=== PATIENT | female | born 1970 | race Caucasian/White ===

== ENCOUNTER 2016-06-20 13:25 | Emergency (ER) | payer OTHER ==
[2016-06-20 13:57] VITALS: BP 155/104
[2016-06-20] MEDS ORDERED: Acetaminophen TAB* 325 MG PO ONE (15:06)
--- NOTE | 2016-06-21 17:41 | UC ---
Zack Pacheco Erika, scribed for Jackie Eduardo MD on 06/20/16 at 1510 . Back Pain HPI - HPI Summary HPI Summary: Patient is a 45-year-old female presenting to [facility] with a CC of right-sided lower back pain starting 06/17/2015. Pt reports that she took down her heavy [place] lights on 06/17/2015, and believes this may be the cause of the pain. There was no direct trauma. She denies strain at the time, but states she noticed the back pain during the night, and states it has become progressively worse since then. Pain radiates to the anterior right leg and right hip. Pain is not alleviated by Tylenol, which she most recently took at 06:00 today. Pain is partially alleviated by heat, but not ice. Hx lower back injury 18 years ago. Pt does use heavy lifting at work. 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 Denies Hx HTN. FHx diabetes, cancer, CAD. - History of Current Complaint Chief Complaint: UCBackPain Stated Complaint: BACK INJURY Hx Obtained From: Patient Hx Last Menstrual Period: 05/11/17 Onset/Duration: Gradual Onset, Lasting Days, Worse Since - 06/17 at night Timing: Constant Severity Initially: Mild Severity Currently: Moderate Pain Intensity: 5 Pain Scale Used: 0-10 Numeric Back Pain: Is Discrete @ - R lower back, Radiates To - RLE Aggravating: Movement Alleviating: Heat Associated Signs And Symptoms: Positive: Negative - Allergies/Home Medications Allergies/Adverse Reactions: Allergies Allergy/AdvReac Type Severity Reaction Status Date / Time Dihydroergotamine Allergy Severe Palpitation Verified 02/14/16 10:20 [From Migranol] s Erythromycin Allergy Severe Hives Verified 02/14/16 10:20 Gabapentin [From Neurontin] Allergy Severe Swelling Verified 02/14/16 10:20 Of Face,Lips,& Throat Ibuprofen Allergy Severe Bleeding Verified 02/14/16 10:20 Naproxen [From Aleve] Allergy Severe Altered Verified 02/14/16 10:20 Mental Status Sumatriptan [From Imitrex] Allergy Severe Palpitation Verified 02/14/16 10:20 s SHINGLES VACCINE Allergy Severe Swelling Uncoded 10/08/15 22:30 Home Medications: Home Medications Acetaminophen [Tylenol] 06/20/16 [History] PMH/Surg Hx/FS Hx/Imm Hx Endocrine History Of: Denies: Diabetes, Thyroid Disease Cardiovascular History Of: Denies: Cardiac Disorders, Hypertension Respiratory History Of: Denies: COPD, Asthma GI/ History Of: Denies: Gastroesophageal Reflux, Ulcer - Surgical History Surgical History: Yes Surgery Procedure, Year, and Place: T&A. APPY. [facility]OTT. cesearean. D&C's x2. tubal ligation - Family History Known Family History: Positive: Cardiac Disease, Diabetes, Other - cancer - Social History Alcohol Use: None Substance Use Type: None Smoking Status (MU): Current Every Day Smoker Type: Cigarettes Amount Used/How Often: 1 - 1 1/2 ppd Length of Time of Smoking/Using Tobacco: ~ 25 years Have You Smoked in the Last Year: Yes Household Exposure Type: Cigarettes - Immunization History Most Recent Tetanus Shot: 2011 Review of Systems Constitutional: Negative Musculoskeletal: Myalgia - R sided lower back pain, RLE pain, right hip pain All Other Systems Reviewed And Are Negative: Yes Physical Exam Triage Information Reviewed: Yes Appearance: Well-Appearing, Well-Nourished, Pain Distress - Mild, Other: - Elevated blood pressure noted Vital Signs: Initial Vital Signs Temp 97.3 F 06/20/16 13:49 Pulse 84 06/20/16 13:49 Resp 18 06/20/16 13:49 BP 155/104 06/20/16 13:49 Pulse Ox 98 06/20/16 13:49 Vital Signs Reviewed: Yes Eyes: Positive: Conjunctiva Clear ENT: Positive: Normal ENT inspection Neck: Positive: Supple Respiratory: Positive: No respiratory distress Cardiovascular: Positive: RRR, Pulses Normal, Brisk Capillary Refill Abdomen Description: Positive: Nontender Musculoskeletal: Positive: Strength Intact, ROM Intact, Other: - Tender in the lumbar paraspinus, palpable spasms in that area, sciatic notch tenderness Neurological: Positive: Alert, Muscle Tone Normal Psychological Exam: Normal Skin Exam: Normal Back Pain Course/Dx - Course Course Of Treatment: Dr. Eduardo offered a work note and pt declined at this time. Discussed elevated blood pressure with patient and discussed the need for follow up. Pt states she does not have a diagnosis of HTN - Differential Dx/Diagnosis Provider Diagnoses: 1. Low back strain. 2. Elevated blood pressure without diagnosis of HTN Discharge - Discharge Plan Condition: Stable Disposition: HOME Prescriptions: Cyclobenzaprine TAB* [Flexeril TAB*] 10 mg PO TID PRN #30 tab PRN Reason: Pain HYDROcodone/ACETAMIN 5-325 MG* [[place] 5-325 TAB*] 1 tab PO Q4H PRN #12 tab MDD 4 PRN Reason: Pain Patient Education Materials: Low Back Strain (ED) Referrals: Rylee Payne [employer] ARCHITECT [Primary Care Provider] - The documentation as recorded by the Zack rubio Erika accurately reflects the service I personally performed and the decisions made by , Jackie Eduardo MD.
== END 2016-06-20 15:27 | disposition home or self-care (01) ==
LOC: UCEAST 13:25
DX: S39.012A Strain of muscle, fascia and tendon of lower back, initial encounter (principal); X58.XXXA Exposure to other specified factors, initial encounter; Y93.9 Activity, unspecified; Y92.9 Unspecified place or not applicable; R03.0 Elevated blood-pressure reading, without diagnosis of hypertension; Z88.6 Allergy status to analgesic agent; Z88.1 Allergy status to other antibiotic agents; Z88.8 Allergy status to other drugs, medicaments and biological substances; F17.210 Nicotine dependence, cigarettes, uncomplicated
CPT/HCPCS: 99212; A9270-GY; G0463

== ENCOUNTER 2017-06-19 23:47 | Inpatient (IN) | payer SELFPAY ==
[2017-06-20] MEDS ORDERED: VERAPAMIL 2.5 MG/ML 4 ML VIAL ONE
[2017-06-20] MEDS ORDERED: Heparin(*) 1000 UNIT/ML 10 ML VIAL CATH LAB IV ONE
[2017-06-20] MEDS ORDERED: Lidocaine 1% INJ* 10 MG/ML 30 ML SDV ONE (00:01)
[2017-06-20] MEDS ORDERED: Iohexol 350 (CONTRAST) 200 ML MDV IV ONE (00:01)
[2017-06-20] MEDS ORDERED: Midazolam* 1 MG/ML 10 ML VIAL (10 MG) ONE (00:01)
[2017-06-20] MEDS ORDERED: Heparin 2 UNITS/ML IVPREMIX* 2,000 ML IV ONE (00:01)
[2017-06-20] MEDS ORDERED: nitroGLYCERIN DRIP* 25,000 MCG/250 ML BTL ONE (00:01)
[2017-06-20] MEDS ORDERED: Morphine INJ* 4 MG/ML 1 ML CARPUJECT ONE (00:02)
[2017-06-20 00:23] LABS: ABS Basophils 0.1 10^3/ul (0-0.2); ABS Eosinophils 0.2 10^3/ul (0-0.6); ABS Lymphocytes 3.9 10^3/ul (1.0-4.8); ABS Monocytes 0.9 10^3/ul (0-0.8); ABS Neutrophils 6.4 10^3/ul (1.5-7.7); ABS Nucleated RBC 0 10^3/ul; Hematocrit 44 % (35-47); Hemoglobin 15.3 g/dl (12.0-16.0); Lymphocyte % 34.2 % (25-47); Mean Corpuscular HGB Conc 35 g/dl (31-36); Mean Corpuscular Hemoglobin 32 pg (27-31); Mean Corpuscular Volume 92 fL (80-97); Mean Platelet Volume 9 um3 (7.4-10.4); Nucleated Red Blood Cells % 0.1; Platelet Count 243 10^3/ul (150-450); Red Blood Count 4.78 10^6/ul (4.0-5.4); Red Cell Distribution Width 13 % (10.5-15); White Blood Count 11.5 10^3/ul (3.5-10.8)
[2017-06-20 00:30] LABS: INR 0.92 (0.77-1.02)
[2017-06-20 00:36] LABS: EGFR Non-African American 82.3 (>60)
[2017-06-20] MEDS ORDERED: Morphine INJ* 4 MG/ML 1 ML CARPUJECT IV ONE (00:42)
[2017-06-20] MEDS ORDERED: Morphine INJ* 2 MG/ML 1 ML SYRINGE (TWO MG - NEW SYRINGE VERSION) IV ONE ×2 (00:43→00:45)
[2017-06-20] MEDS ORDERED: Heparin for STEMI(*) 5,000 UNITS/ML 1 ML VIAL IV ONE (00:46)
[2017-06-20] MEDS ORDERED: Ondansetron INJ* 2 MG/ML VIAL IV ONE (00:46)
[2017-06-20] MEDS ORDERED: Ticagrelor* 90 MG TAB PO ONE (00:47)
[2017-06-20] MEDS ORDERED: fentaNYL* 50 MCG/ML 2 ML VIAL (100 MCG VIAL) ONE ×2 (00:51)
[2017-06-20] MEDS ORDERED: NS 0.9% 1000 ML* 1,000 ML IV SCH ×2 (01:00→01:45)
[2017-06-20] MEDS ORDERED: Ondansetron INJ* 2 MG/ML VIAL IV PRN (01:36)
[2017-06-20] MEDS ORDERED: Acetaminophen TAB* 325 MG PO PRN (01:36)
[2017-06-20] MEDS ORDERED: Nitroglycerin TAB 0.4 MG* 0.4 MG TAB SL PRN (01:36)
[2017-06-20] MEDS: Metoprolol Tartrate TAB* 25 MG PO SCH ×2 (03:10→10:14)
[2017-06-20] MEDS ORDERED: Al Hydrox/Mg Hydrox/Simet LIQ* 30 ML UDC PO PRN (03:11)
[2017-06-20] MEDS: Nicotine Inhaler* 10 MG AMP INH PRN ×2 (06:32→10:22)
[2017-06-20] MEDS: Mouth Piece, Nicotine* 1 EACH CARTRIDGE INH PRN ×2 (06:32→10:23)
--- NOTE | 2017-06-20 08:02 | RAD ---
Indication: Chest pain. Single frontal view of the chest performed at 0015 hours was reviewed. Comparison is made with previous exam dated July 22, 2015. No mediastinal shift is noted. Heart is of normal size and configuration. Lung wayne appear clear. IMPRESSION: NO ACTIVE CARDIOPULMONARY DISEASE IS NOTED.
[2017-06-20] MEDS: Ticagrelor* 90 MG TAB PO SCH ×2 (08:31→20:04)
[2017-06-20] MEDS: Aspirin Low Dose CHEW TAB* 81 MG PO SCH (08:31)
[2017-06-20] MEDS: Omeprazole CAP* 20 MG PO SCH (08:31)
--- NOTE | 2017-06-20 13:21 | HP ---
CC: Aarti Doyle * HISTORY AND PHYSICAL: DATE OF ADMISSION: 06/20/17 PRIMARY CARE PHYSICIAN: Aarti Doyle. HISTORY OF PRESENT ILLNESS: A 46-year-old morbidly obese woman admitted with inferior wall ST-elevation infarct. She had cardiac catheterization around 2004, which was normal, I reviewed the angiogram. She had no coronary disease. The evening of admission, she developed severe precordial chest pain with radiation to her back and up into her jaw, which was stuttering in pattern with intermittent remission and recurrence. She presented in the ER, EKG there at 2352 demonstrated an acute inferior wall ST-elevation infarct with ST elevation in II, III, aVF, and reciprocal ST-T wave changes in I, aVL. We were unable to access any old EKGs. She was brought to the labor and delivery registered nurse for emergent catheterization. PAST MEDICAL HISTORY: Morbid obesity, tobacco use. MEDICATIONS: Prehospital medications: None, though she does tolerate aspirin. ALLERGIES: Numerous including ERYTHROMYCIN, GABAPENTIN, IBUPROFEN. See the admission records. FAMILY HISTORY: Positive for premature cardiovascular disease. SOCIAL HISTORY: She is a daily smoker. REVIEW OF SYSTEMS: General: She has not had weight loss, fever. HOME CARE ATTENDANT: No history of TIA or CVA. GI: No peptic ulcer disease or bleeding. Heme: No history of malignancy or anemia. Pulmonary: No history of asthma, pneumonia. Remainder of 14-point review all negative. PHYSICAL EXAMINATION VITAL SIGNS: She is morbidly obese with a weight of 278 pounds. Presenting BP 148/92, heart rate in the 60s, no ectopy, sinus rhythm. HEENT: Normal without xanthelasma, scleral injection, or jaundice. EOMs normal. NECK: No JVD, carotids normal. No bruits. No thyromegaly. LUNGS: Clear to percussion and auscultation. CARDIAC: Helix and RV not palpable, regular rhythm, no gallop, murmur, or rub. ABDOMEN: Obese, nontender, aorta nonpalpable. No bruit. EXTREMITIES: Radial and femoral pulses normal. No bruits. Pedal pulses normal. No cyanosis, clubbing, or edema. NEUROLOGIC: Cranial nerves grossly intact. PSYCH: Oriented and appropriate. SKIN: Warm and perfused. DIAGNOSTIC STUDIES/LAB DATA: CBC notable only for white count of 11.5. BMP: Random blood sugar 129 with normal A1c of 5.6. Normal electrolytes, potassium, and creatinine. Cholesterol 151, triglycerides 188, LDL 76, HDL 37.7. First troponin 0.01. Chest x-ray: Portable film, somewhat under-penetrated film, no infiltrate or heart failure. IMPRESSION AND PLAN: 1. Acute inferior wall ST-elevation infarct. She underwent emergent catheterization, risk factors include tobacco use and family history of premature vascular disease. 2. Morbid obesity. We will review secondary risk factor modification measures. 3. Tobacco use. We will encourage her not to resume smoking. [id number]/[facility] #: [id number] DALILA
[2017-06-20] MEDS: Atorvastatin* 80 MG TAB PO SCH (17:13)
[2017-06-20] MEDS: Metoprolol Tartrate TAB* 50 mg PO SCH (20:04)
[2017-06-21 06:03] LABS: EGFR Non-African American 78.7 (>60)
[2017-06-21] MEDS: Metoprolol Tartrate TAB* 50 mg PO SCH (08:13)
[2017-06-21] MEDS: Omeprazole CAP* 20 MG PO SCH (08:13)
[2017-06-21] MEDS: Aspirin Low Dose CHEW TAB* 81 MG PO SCH (08:13)
[2017-06-21] MEDS: Ticagrelor* 90 MG TAB PO SCH (08:13)
[2017-06-21] MEDS: Nicotine Inhaler* 10 MG AMP INH PRN (14:50)
[2017-06-21 15:37] VITALS: BP 117/87
[2017-06-21] MEDS: Atorvastatin* 80 MG TAB PO SCH (17:58)
--- NOTE | 2017-06-22 13:51 | DS ---
Amended report to correct date of discharge. CC: Dr. Patricia Rosales; Dr. Sukhwinder Pryor; Rylee Mondragon NP DISCHARGE SUMMARY: DATE OF ADMISSION: 06/20/17 DATE OF DISCHARGE: 06/21/17 FINAL DIAGNOSIS: Acute ST-segment elevation inferior wall myocardial infarction. SECONDARY DIAGNOSES: 1. Obesity. 2. Tobacco use. 3. Hyperlipidemia. DISCHARGE MEDICATIONS: Include: 1. Aspirin 81 mg a day. 2. Atorvastatin 80 mg a day. 3. Metoprolol tartrate 50 mg twice a day. 4. Ticagrelor 90 mg twice a day. 5. Sublingual nitroglycerin on a p.r.n. basis. HOSPITAL COURSE: The patient is a pleasant 46-year-old female who presented to [facility] in the process of an acute ST-segment elevation inferior wall myocardial infarction on 06/20/17. Please refer to Dr. Sukhwinder Pryor' admission history and physical for complete details. She was taken emergently to the cardiovascular laboratory where a cardiac catheterization demonstrated a normal left main, a normal LAD and a normal circumflex with a right coronary artery with an 80% proximal lesion with thrombus with PRANAV 2 flow. She underwent stent placement with a 3.25 x15 mm long Xience Alpine drug-eluting stent. It was post dilated to high pressure. Her ejection fraction was found to be 60%. During the course of the hospitalization, she did well, was up and about. Her EKG never developed any significant Q waves. Her laboratory results showed that her cardiac enzymes peaked at a troponin of 0.53 and the total CPK peaked at 93 with an MB of 5.4. On the day of discharge, she was up and about. DISCHARGE PHYSICAL EXAMINATION: The blood pressure was 102/57 with a pulse in the 50s to 60s, respirations 20, O2 saturation 98%. Neck was supple. No increased JVP. Carotid had good upstroke and volume. I did not appreciate definitive bruit. Conjunctiva pink. Sclerae clear. Lungs revealed no accessory muscle usage. There were no active rales, rhonchi or wheezes. Heart revealed no palpable heaves or thrills. Somewhat distant heart sounds were noted with a borderline bradycardic rate. No significant systolic or diastolic murmur. Abdomen was obese, soft, nontender. Extremities were without edema. The right radial site was well healed with good antegrade flow. Neuro: The patient alert and oriented with normal mentation. Musculoskeletal: The patient moved all extremities appropriately and has a normal gait. Psychiatric : The patient with normal affect. The patient has a followup scheduled appointment coming up with Dr. Pryor on at 2:40 p.m. to check the wound site. The patient has been given 5 days of medications through our pharmacy and she will be calling [employer] so that she will get reinstituted to cover not only her current medications, but to retrograde cover this hospitalization (she had missed a couple of months of paying her premium). She was given a stent card as well as a cardiac education booklet and all of her questions were answered to her satisfaction. She will also be setting up an appointment to see her family physician. [id number]/[facility] #: [id number] DALILA
--- NOTE | 2017-06-23 06:16 | CATH ---
Amended report to correct date of procedure. CC: Rylee Mondragon, CARIDAD; Dr. Pryor * STENT REPORT: DATE OF PROCEDURE: 06/20/17 - ROOM #[id number] PRIMARY: Dr. oMndragon [place] PROCEDURES: Right radial artery access, bilateral selective coronary cineangiography, left heart catheterization, left ventriculography, stent placement RCA 3.25 x 15 Xience ROSEANNE. HISTORY: A 46-year-old woman with acute inferior wall ST elevation infarct. PROCEDURE ACCESS: Right radial artery sheath 6F slender. MEDICATIONS: 1. Subcu lidocaine. 2. IV Versed. 3. IV fentanyl. 4. Heparin 3000 units. 5. Nitroglycerin 300 mcg. 6. Verapamil 3 mg IA. 7. Heparin 2000 units IV. DIAGNOSTIC CATHETER: 5F tig-4, 5F pigtail. GUIDING CATHETER: RCA 6F R4, wire 14 BMW used to deploy a 3.25 x 15 Xience drug - eluting stent mid RCA 12 atmosphere 16 seconds, post-dilated with a 3.25 x 15 noncompliant balloon 18 atmospheres 30 seconds, 20 atmospheres 30 seconds. HEMODYNAMICS: Initial BP 138/88 LV and post revascularization 127/6-21, no aortic valve gradient on pullback. ANGIOGRAPHY: Left main: The left main is normal in size, has no stenosis. LAD: The LAD is moderate, extends to the apex, it supplies a moderate first diagonal, LAD, ends at the apex, the LAD has no significant stenosis. Circumflex: The circumflex is not dominant, moderate in size with a moderate marginal and moderate posterolateral, has no stenosis. RCA: The RCA is moderate, dominant, has a lucent 80% mid stenosis before the right ventricular free wall branch, distally there is a [id number] PDA followed by a small posterolateral branch. Flow is PRANAV-2. After stent placement, post-dilatation, there is no residual stenosis, distal flow is PRANAV-3, there is an excellent myocardial blush. The RV free wall branch is not compromised. LV gram: There is ventricular ectopy with injection, post-PVC contractility is normal, estimated LVEF 60%. CONCLUSION: 1. Single-vessel disease, RCA with inferior wall ST-elevation infarct, excellent angiographic results with a drug-eluting stent placement. 2. Normal LV systolic function. 3. Elevated LVEDP, otherwise normal left-sided hemodynamics. 4. Successful right radial artery access. [id number]/[facility] #: [id number] [facility]
--- NOTE | 2017-06-25 00:12 | ED ---
Corby Pacheco Natalie, scribed for Pb Pruett MD on 06/19/17 at 2356 . HPI Chest Pain - HPI Summary HPI Summary: The pt is a 46 y/o F presenting to the ED c/o CP starting at 20.00. The pain started as mild intermittent episodes and suddenly became worse. Per EMS, the patients first 12 lead EKG at 23:02 and second were normal. The third EKG at 23 :[address] elevation. BP was 136/88. Pt was in pain upon arriving to ED. Pt is relived of most CP (little discomfort) with Morphine in ED She is a smoker. - History of Current Complaint Chief Complaint: EDChestPainROMI Hx Obtained From: Patient Hx Last Menstrual Period: 05/11/17 Onset/Duration: Started Hours Ago - at 20:00, Still Present Timing: Constant, Lasting Hours Initial Severity: Severe Current Severity: Moderate Pain Scale Used: 0-10 Numeric Chest Pain Location: Diffuse Chest Pain Radiates: Yes Chest Pain Radiates To:: Back, Jaw Alleviating Factor(s): Other: - Morphine in ED Associated Signs and Symptoms: Positive: Chest Pain, Shortness of Breath - Allergy/Home Medications Allergies/Adverse Reactions: Allergies Allergy/AdvReac Type Severity Reaction Status Date / Time Dihydroergotamine Allergy Severe Palpitation Verified 06/20/17 00:35 [From Migranol] s Erythromycin Allergy Severe Hives Verified 06/20/17 00:35 Gabapentin [From Neurontin] Allergy Severe Swelling Verified 06/20/17 00:35 Of Face,Lips,& Throat Ibuprofen Allergy Severe Bleeding Verified 06/20/17 00:35 Naproxen [From Aleve] Allergy Severe Altered Verified 06/20/17 00:35 Mental Status Sumatriptan [From Imitrex] Allergy Severe Palpitation Verified 06/20/17 00:35 s SHINGLES VACCINE Allergy Severe Swelling Uncoded 06/20/17 00:35 PMH/Surg Hx/FS Hx/Imm Hx Previously Healthy: No Endocrine/Hematology History: Denies: Hx Diabetes, Hx Thyroid Disease Cardiovascular History: Denies: Hx Hypertension Respiratory History: Denies: Hx Asthma, Hx Chronic Obstructive Pulmonary Disease (COPD) GI History: Denies: Hx Ulcer Sensory History: Denies: Hx Contacts or Glasses Opthamlomology History: Denies: Hx Contacts or Glasses Neurological History: Reports: Hx Headaches - OCCASSIONALLY Psychiatric History: Denies: Hx Substance Abuse - Surgical History Surgery Procedure, Year, and Place: T&A. APPY. SCOTT. elysiaearean. D&C's x2. tubal ligation Infectious Disease History: Reports: Hx Shingles Denies: Hx Clostridium Difficile, Hx Hepatitis, Hx Human Immunodeficiency Virus (HIV), Hx of Known/Suspected MRSA, Hx Tuberculosis, Hx Known/Suspected VRE , Hx Known/Suspected VRSA, History Other Infectious Disease - HERPES SIMPLEX - Family History Known Family History: Positive: Cardiac Disease, Diabetes, Other - cancer - Social History Alcohol Use: None Substance Use Type: Reports: None Smoking Status (MU): Current Every Day Smoker Type: Cigarettes Amount Used/How Often: 1 - 1 1/2 ppd Length of Time of Smoking/Using Tobacco: ~ 25 years Have You Smoked in the Last Year: Yes Review of Systems ENT: Other - jaw pain Positive: Chest Pain, Other - ST elevation on 12 lead Positive: Shortness Of Breath Positive: Other - back pain All Other Systems Reviewed And Are Negative: Yes Physical Exam - Summary Physical Exam Summary: Appearance: Moderate to severe distress, Obese, Pain distress Skin: Warm, diaphoretic, pale Eyes: Normal, PERRL, EOMI, sclera anicteric ENT: Normal Neck: Supple, nontender Respiratory: Clear to auscultation, RR 18 breaths/min Cardiovascular: BP 145/67 mmHg, HR 80BPM Inferior and lateral NH Abdomen: Soft, nontender, no organomegaly Bowel sounds: Present Musculoskeletal: Normal, Strength/ROM Intact, no edema, pulses symmetrical Neurological: Normal, A&Ox3, cranial nerves II-XII WNL, follows commands, gait not tested, sensation intact to pin and light touch Psychiatric: affect normal, behavior appropriate, dressed appropriately, judgment intact Triage Information Reviewed: Yes Vital Signs On Initial Exam: Initial Vitals Temp Pulse Resp BP Pulse Ox 36.8 C 68 20 148/92 98 06/19/17 23:50 06/19/17 23:50 06/19/17 23:50 06/19/17 23:50 06/19/17 23:50 Vital Signs Reviewed: Yes Diagnostics - Vital Signs Vital Signs Temp Pulse Resp BP Pulse Ox 06/20/17 01:37 37.6 C 06/20/17 00:56 36.8 C 72 17 137/87 100 06/20/17 00:17 73 18 126/95 99 06/20/17 00:15 73 18 138/91 100 06/20/17 00:10 70 15 126/81 100 06/20/17 00:05 70 15 136/92 100 06/20/17 00:03 16 06/20/17 00:00 71 16 100 06/19/17 23:55 18 06/19/17 23:54 68 100 06/19/17 23:52 148/92 06/19/17 23:50 36.8 C 68 20 148/92 98 - Laboratory Lab Results: Lab Results 06/20/17 06/20/17 06/20/17 Range/Units 00:01 00:01 00:01 WBC 11.5 H (3.5-10.8) 10^3/ul RBC 4.78 (4.0-5.4) 10^6/ul Hgb 15.3 (12.0-16.0) g/dl Hct 44 (35-47) % MCV 92 (80-97) fL MCH 32 H (27-31) pg MCHC 35 (31-36) g/dl RDW 13 (10.5-15) % Plt Count 243 (150-450) 10^3/ul MPV 9 (7.4-10.4) um3 Neut % (Auto) 55.1 (38-83) % Lymph % (Auto) 34.2 (25-47) % [place] % (Auto) 8.0 (1-9) % Eos % (Auto) 2.0 (0-6) % Baso % (Auto) 0.7 (0-2) % Absolute Neuts (auto) 6.4 (1.5-7.7) 10^3/ul Absolute Lymphs (auto) 3.9 (1.0-4.8) 10^3/ul Absolute Monos (auto) 0.9 H (0-0.8) 10^3/ul Absolute Eos (auto) 0.2 (0-0.6) 10^3/ul Absolute Basos (auto) 0.1 (0-0.2) 10^3/ul Absolute Nucleated RBC 0 10^3/ul Nucleated RBC % 0.1 INR (Anticoag Therapy) (0.77-1.02) Sodium 138 (133-145) mmol/L Potassium 4.5 (3.5-5.0) mmol/L Chloride 105 (101-111) mmol/L Carbon Dioxide 24 (22-32) mmol/L Anion Gap 9 (2-11) mmol/L BUN 14 (6-24) mg/dL Creatinine 0.76 (0.51-0.95) mg/dL Est GFR ( Amer) 105.8 (>60) Est GFR (Non-Af Amer) 82.3 (>60) BUN/Creatinine Ratio 18.4 (8-20) Glucose 129 H (70-100) mg/dL Hemoglobin A1c (4.0-5.6) % Lactic Acid 2.0 (0.5-2.0) mmol/L Calcium 9.4 (8.6-10.3) mg/dL Magnesium 1.9 (1.9-2.7) mg/dL Total Bilirubin 0.30 (0.2-1.0) mg/dL AST 17 (13-39) U/L ALT 17 (7-52) U/L Alkaline Phosphatase 98 (34-104) U/L Total Creatine Kinase 76 (10-223) U/L Troponin I 0.01 (<0.04) ng/mL Total Protein 6.8 (6.4-8.9) g/dL Albumin 3.8 (3.2-5.2) g/dL Globulin 3.0 (2-4) g/dL Albumin/Globulin Ratio 1.3 (1-3) Triglycerides 188 mg/dL Cholesterol 151 mg/dL LDL Cholesterol 76 mg/dL HDL Cholesterol 37.7 mg/dL Beta HCG, Quant 1.64 mIU/mL Blood Type Antibody Screen 06/20/17 06/20/17 06/20/17 Range/Units 00:01 00:01 00:01 WBC (3.5-10.8) 10^3/ul RBC (4.0-5.4) 10^6/ul Hgb (12.0-16.0) g/dl Hct (35-47) % MCV (80-97) fL MCH (27-31) pg MCHC (31-36) g/dl RDW (10.5-15) % Plt Count (150-450) 10^3/ul MPV (7.4-10.4) um3 Neut % (Auto) (38-83) % Lymph % (Auto) (25-47) % Clayton % (Auto) (1-9) % Eos % (Auto) (0-6) % Baso % (Auto) (0-2) % Absolute Neuts (auto) (1.5-7.7) 10^3/ul Absolute Lymphs (auto) (1.0-4.8) 10^3/ul Absolute Monos (auto) (0-0.8) 10^3/ul Absolute Eos (auto) (0-0.6) 10^3/ul Absolute Basos (auto) (0-0.2) 10^3/ul Absolute Nucleated RBC 10^3/ul Nucleated RBC % INR (Anticoag Therapy) 0.92 (0.77-1.02) Sodium (133-145) mmol/L Potassium (3.5-5.0) mmol/L Chloride (101-111) mmol/L Carbon Dioxide (22-32) mmol/L Anion Gap (2-11) mmol/L BUN (6-24) mg/dL Creatinine (0.51-0.95) mg/dL Est GFR ( Amer) (>60) Est GFR (Non-Af Amer) (>60) BUN/Creatinine Ratio (8-20) Glucose (70-100) mg/dL Hemoglobin A1c 5.6 (4.0-5.6) % Lactic Acid (0.5-2.0) mmol/L Calcium (8.6-10.3) mg/dL Magnesium (1.9-2.7) mg/dL Total Bilirubin (0.2-1.0) mg/dL AST (13-39) U/L ALT (7-52) U/L Alkaline Phosphatase (34-104) U/L Total Creatine Kinase (10-223) U/L Troponin I (<0.04) ng/mL Total Protein (6.4-8.9) g/dL Albumin (3.2-5.2) g/dL Globulin (2-4) g/dL Albumin/Globulin Ratio (1-3) Triglycerides mg/dL Cholesterol mg/dL LDL Cholesterol mg/dL HDL Cholesterol mg/dL Beta HCG, Quant mIU/mL Blood Type O Positive Antibody Screen Negative Result Diagrams: 06/20/17 00:01 06/21/17 05:26 Lab Statement: Any lab studies that have been ordered have been reviewed, and results considered in the medical decision making process. - EKG 23:52 Cardiac Rate: NL EKG Rhythm: Sinus Rhythm - 75 BPM EKG Interpretation: IWMI. T wave in I,L. Chest Pain Course/Dx - Course Course Of Treatment: The patient was BIBA to [facility] with chest pain. En route, the patient had ST elevation. The patients chest pain was minimized in the ED. In the ED course the patient was given Tylenol, Aspirin, Lipitor, Heparin for STEMI , Lopressor, Morphine, NTG, normal saline IV fluids, Ondansetron, and Brilinta. Bloodwork shows Troponin I at 0.01 at 00:01 and 0.27 at 03:20. EKG showed IWMI, T wave I,L. The patient will be admitted to [facility] ICU for further care. - Diagnoses Provider Diagnoses: Inferior and lateral ST segment elevation Discharge - Discharge Plan Condition: Good Disposition: ADMITTED TO [facility] The documentation as recorded by the Corby rubio Natalie accurately reflects the service I personally performed and the decisions made by , Pb Pruett MD.
== END 2017-06-21 18:59 | disposition home or self-care (01) | DRG 247 ==
LOC: ED 23:47 → CHICATH 06-20 00:29 → ICU 06-20 01:41 → MEDTELE 06-20 14:22
PROVIDERS: ADMIT Internal Medicine Cardiovascular Disease; ATTEND Internal Medicine Cardiovascular Disease
PROC: 027034Z Dilation of Coronary Artery, One Artery with Drug-eluting Intraluminal Device, Percutaneous Approach (ICD-10-PCS; principal; 2017-06-20)
PROC: B2111ZZ Fluoroscopy of Multiple Coronary Arteries using Low Osmolar Contrast (ICD-10-PCS; 2017-06-20)
PROC: B2151ZZ Fluoroscopy of Left Heart using Low Osmolar Contrast (ICD-10-PCS; 2017-06-20)
DX: I21.19 ST elevation (STEMI) myocardial infarction involving other coronary artery of inferior wall (principal); E66.01 Morbid (severe) obesity due to excess calories; Z68.42 Body mass index [BMI] 45.0-49.9, adult; F17.200 Nicotine dependence, unspecified, uncomplicated; E78.5 Hyperlipidemia, unspecified; Z82.49 Family history of ischemic heart disease and other diseases of the circulatory system; Z88.1 Allergy status to other antibiotic agents; Z88.8 Allergy status to other drugs, medicaments and biological substances; Z79.82 Long term (current) use of aspirin; Z79.02 Long term (current) use of antithrombotics/antiplatelets; R00.1 Bradycardia, unspecified
CPT/HCPCS: 36415; 71045; 80048; 80053; 80061; 82550; 82553; 83036; 83605; 83735; 84484; 84702; 85025; 85610; 86850; 86900; 86901; 87641; 93005; 99156; 99157; 99285; 99406; A9270-GY; C1725; C1769; C1876; C1887; C9606-RC; J1644; J2250; J2270; J2405; J3010

== ENCOUNTER 2017-08-30 17:13 | Emergency (ER) | payer OTHER ==
[2017-08-30] MEDS ORDERED: oxyCODONE/Acetamin 5/325 MG* TAB PO ONE (18:26)
[2017-08-30 18:54] LABS: ABS Basophils 0.1 10^3/ul (0-0.2); ABS Eosinophils 0.2 10^3/ul (0-0.6); ABS Lymphocytes 2.8 10^3/ul (1.0-4.8); ABS Monocytes 0.7 10^3/ul (0-0.8); ABS Neutrophils 6.1 10^3/ul (1.5-7.7); ABS Nucleated RBC 0 10^3/ul; Eosinophil % 2.1 % (0-6); Hematocrit 43 % (35-47); Hemoglobin 15.2 g/dl (12.0-16.0); Mean Corpuscular HGB Conc 35 g/dl (31-36); Mean Corpuscular Hemoglobin 32 pg (27-31); Mean Corpuscular Volume 92 fL (80-97); Mean Platelet Volume 8.4 um3 (7.4-10.4); Nucleated Red Blood Cells % 0; Platelet Count 229 10^3/ul (150-450); Red Blood Count 4.68 10^6/ul (4.0-5.4); Red Cell Distribution Width 13 % (10.5-15)
[2017-08-30 19:21] LABS: EGFR Non-African American 94.8 (>60)
[2017-08-30 19:32] LABS: INR 0.91 (0.77-1.02)
--- NOTE | 2017-08-30 19:51 | RAD ---
HISTORY: Left leg pain TECHNIQUE: Multiple transverse and longitudinal ultrasound images were obtained of the veins of the left lower extremity using grayscale, color Doppler, and spectral Doppler imaging with and without compression and with augmentation. FINDINGS: VEINS: The common femoral vein, deep femoral vein, femoral vein and popliteal vein are compressible throughout their course, with normal flow on color Doppler imaging and normal response to augmentation on spectral Doppler imaging. SOFT TISSUES: Grossly normal. No large popliteal fossa cyst was identified. IMPRESSION: No sonographic evidence of deep vein thrombosis.
--- NOTE | 2017-08-30 20:19 | RAD ---
INDICATION: Shortness of breath with enlarging soft tissue mass in upper left thigh. Requisition notes recent MRI with stent placement. COMPARISON: Chest x-ray dated June 20, 2017 TECHNIQUE: Single AP portable view of the chest was obtained. FINDINGS: Image quality is compromised due to the relative inferiority of a portable chest x-ray. The heart and mediastinum exhibit normal size and contour. The lungs are grossly clear. There is no evidence of a large pleural effusion. Visualized bones are normal for the patient's age. IMPRESSION: No radiographic evidence for acute cardiopulmonary abnormality on this portable chest x-ray.
[2017-08-30 20:43] VITALS: BP 107/63
--- NOTE | 2017-08-30 20:53 | ED ---
Cassie Pacheco Julia, scribed for Abilio Umaña on 08/30/17 at 1817 . Shortness of Breath - HPI Summary HPI Summary: This patient is a 47 year old F presenting to [facility] with a chief complaint gradually worsening edema and pain to LLE and gradually worsening SOB and chest pain for the past week and a half. Patient denies injury, falls, or trauma. The patient rates the pain 6/10 in severity. Patient states she cannot walk from room to room without feeling SOB. She states standing aggravates her LLE pain. Patient had an [place] with a stent placement in June of 2017. She states she felt good when she left the hospital in June. - History of Current Complaint Chief Complaint: EDShortnessOfBreath Time Seen by Provider: 08/30/17 18:06 Hx Obtained From: Patient Onset/Duration: Gradual Onset, Lasting Weeks Timing: Constant Aggrevating Factors: Movement, Other - standing Associated Signs & Symptoms: Calf Pain/Swelling, Edema Related History: Recent Trauma - Recent W[place] - Allergy/Home Medications Allergies/Adverse Reactions: Allergies Allergy/AdvReac Type Severity Reaction Status Date / Time erythromycin base Allergy Hives Verified 08/30/17 17:58 [From Erythrocin] dihydroergotamine AdvReac Palpitation Verified 08/30/17 19:47 [From Migranal] s gabapentin [From Neurontin] AdvReac Swelling Verified 08/30/17 19:47 ibuprofen AdvReac Bleeding Verified 08/30/17 19:47 naproxen [From Aleve] AdvReac Altered Verified 08/30/17 19:47 Mental Status sumatriptan [From Imitrex] AdvReac Palpitation Verified 08/30/17 19:47 s shingles vac AdvReac Swelling Uncoded 08/30/17 19:47 PMH/Surg Hx/FS Hx/Imm Hx Endocrine/Hematology History: Denies: Hx Diabetes, Hx Thyroid Disease Cardiovascular History: Reports: Hx Myocardial Infarction - with stent placement Denies: Hx Hypertension Respiratory History: Denies: Hx Asthma, Hx Chronic Obstructive Pulmonary Disease (COPD) GI History: Denies: Hx Ulcer Sensory History: Denies: Hx Contacts or Glasses, Hx Hearing Aid Opthamlomology History: Denies: Hx Contacts or Glasses Neurological History: Reports: Hx Headaches - OCCASSIONALLY Psychiatric History: Denies: Hx Substance Abuse - Surgical History Surgery Procedure, Year, and Place: T&A. SHARONY. CHOLE. [place]. D&C's x2. tubal ligation - Immunization History Date of Tetanus Vaccine: unk Date of Influenza Vaccine: unk Infectious Disease History: No Infectious Disease History: Reports: Hx Shingles Denies: Hx Clostridium Difficile, Hx Hepatitis, Hx Human Immunodeficiency Virus (HIV), Hx of Known/Suspected MRSA, Hx Tuberculosis, Hx Known/Suspected VRE , Hx Known/Suspected VRSA, History Other Infectious Disease - HERPES SIMPLEX, Traveled Outside the [place] in Last 30 Days - Family History Known Family History: Positive: Cardiac Disease, Diabetes, Other - cancer - Social History Alcohol Use: None Substance Use Type: Reports: None Smoking Status (MU): Current Every Day Smoker Type: Cigarettes Amount Used/How Often: 1 - 1 1/2 ppd Length of Time of Smoking/Using Tobacco: ~ 25 years Have You Smoked in the Last Year: Yes Review of Systems Positive: Shortness Of Breath Positive: Myalgia - LLE, Edema - LLE All Other Systems Reviewed And Are Negative: Yes Physical Exam - Summary Physical Exam Summary: Appearance: Well appearing, no pain distress Skin: warm, dry, reflects adequate perfusion Head/face: normal Eyes: EOMI, VESTA ENT: normal Neck: supple, non-tender Respiratory: CTA, breath sounds present Cardiovascular: RRR, pulses symmetrical Abdomen: non-tender, soft Bowel: present Musculoskeletal: strength/ROM intact, tenderness over L calf and thigh Neuro: normal, sensory motor intact, A&Ox3 Triage Information Reviewed: Yes Vital Signs On Initial Exam: Initial Vitals Temp Pulse Resp BP Pulse Ox 97.3 F 88 20 151/92 97 08/30/17 17:16 08/30/17 17:16 08/30/17 17:16 08/30/17 17:16 08/30/17 17:16 Vital Signs Reviewed: Yes Diagnostics - Vital Signs Vital Signs Temp Pulse Resp BP Pulse Ox 08/30/17 17:16 97.3 F 88 20 151/92 97 - Laboratory Lab Results: Lab Results 08/30/17 08/30/17 08/30/17 Range/Units 18:45 18:45 18:45 WBC 10.0 (3.5-10.8) 10^3/ul RBC 4.68 (4.0-5.4) 10^6/ul Hgb 15.2 (12.0-16.0) g/dl Hct 43 (35-47) % MCV 92 (80-97) fL MCH 32 H (27-31) pg MCHC 35 (31-36) g/dl RDW 13 (10.5-15) % Plt Count 229 (150-450) 10^3/ul MPV 8.4 (7.4-10.4) um3 Neut % (Auto) 61.5 (38-83) % Lymph % (Auto) 28.0 (25-47) % [place] % (Auto) 7.4 H (0-7) % Eos % (Auto) 2.1 (0-6) % Baso % (Auto) 1.0 (0-2) % Absolute Neuts (auto) 6.1 (1.5-7.7) 10^3/ul Absolute Lymphs (auto) 2.8 (1.0-4.8) 10^3/ul Absolute Monos (auto) 0.7 (0-0.8) 10^3/ul Absolute Eos (auto) 0.2 (0-0.6) 10^3/ul Absolute Basos (auto) 0.1 (0-0.2) 10^3/ul Absolute Nucleated RBC 0 10^3/ul Nucleated RBC % 0 INR (Anticoag Therapy) 0.91 (0.77-1.02) APTT 34.7 (26.0-36.3) seconds D-Dimer, Quantitative < 200 (Less Than 230) ng/mL Sodium (133-145) mmol/L Potassium (3.5-5.0) mmol/L Chloride (101-111) mmol/L Carbon Dioxide (22-32) mmol/L Anion Gap (2-11) mmol/L BUN (6-24) mg/dL Creatinine (0.51-0.95) mg/dL Est GFR ( Amer) (>60) Est GFR (Non-Af Amer) (>60) BUN/Creatinine Ratio (8-20) Glucose (70-100) mg/dL Lactic Acid (0.5-2.0) mmol/L Calcium (8.6-10.3) mg/dL Total Bilirubin (0.2-1.0) mg/dL AST (13-39) U/L ALT (7-52) U/L Alkaline Phosphatase (34-104) U/L Troponin I (<0.04) ng/mL B-Natriuretic Peptide 51 ( - 100) pg/mL Total Protein (6.4-8.9) g/dL Albumin (3.2-5.2) g/dL Globulin (2-4) g/dL Albumin/Globulin Ratio (1-3) 08/30/17 08/30/17 Range/Units 18:45 18:45 WBC (3.5-10.8) 10^3/ul RBC (4.0-5.4) 10^6/ul Hgb (12.0-16.0) g/dl Hct (35-47) % MCV (80-97) fL MCH (27-31) pg MCHC (31-36) g/dl RDW (10.5-15) % Plt Count (150-450) 10^3/ul MPV (7.4-10.4) um3 Neut % (Auto) (38-83) % Lymph % (Auto) (25-47) % [place] % (Auto) (0-7) % Eos % (Auto) (0-6) % Baso % (Auto) (0-2) % Absolute Neuts (auto) (1.5-7.7) 10^3/ul Absolute Lymphs (auto) (1.0-4.8) 10^3/ul Absolute Monos (auto) (0-0.8) 10^3/ul Absolute Eos (auto) (0-0.6) 10^3/ul Absolute Basos (auto) (0-0.2) 10^3/ul Absolute Nucleated RBC 10^3/ul Nucleated RBC % INR (Anticoag Therapy) (0.77-1.02) APTT (26.0-36.3) seconds D-Dimer, Quantitative (Less Than 230) ng/mL Sodium 136 (133-145) mmol/L Potassium 3.7 (3.5-5.0) mmol/L Chloride 106 (101-111) mmol/L Carbon Dioxide 24 (22-32) mmol/L Anion Gap 6 (2-11) mmol/L BUN 15 (6-24) mg/dL Creatinine 0.67 (0.51-0.95) mg/dL Est GFR ( Amer) 121.9 (>60) Est GFR (Non-Af Amer) 94.8 (>60) BUN/Creatinine Ratio 22.4 H (8-20) Glucose 93 (70-100) mg/dL Lactic Acid 1.4 (0.5-2.0) mmol/L Calcium 8.9 (8.6-10.3) mg/dL Total Bilirubin 0.40 (0.2-1.0) mg/dL AST 12 L (13-39) U/L ALT 15 (7-52) U/L Alkaline Phosphatase 79 (34-104) U/L Troponin I 0.00 (<0.04) ng/mL B-Natriuretic Peptide ( - 100) pg/mL Total Protein 6.7 (6.4-8.9) g/dL Albumin 3.7 (3.2-5.2) g/dL Globulin 3.0 (2-4) g/dL Albumin/Globulin Ratio 1.2 (1-3) Result Diagrams: 08/30/17 18:45 08/30/17 18:45 Lab Statement: Any lab studies that have been ordered have been reviewed, and results considered in the medical decision making process. - Radiology CXR Radiology Interpretation Completed By: Radiologist - No radiographic evidence for acute cardiopulmonary abnormality on this portable chest x-ray. ED Physician has reviewed this report. - EKG 1722 Cardiac Rate: NL - at 69 BPM EKG Rhythm: Sinus Rhythm EKG Interpretation: no acute changes - Additional Comments Diagnostic Additional Comments: A Venous US reveals, as per radiologist: No sonographic evidence of deep vein thrombosis. ED Physician has reviewed this report. Re-Evaluation - Re-Evaluation 1 Comment: Patient was advised to stay to r/o ACS. Patient will sign out AMA. Course/Dx - Course Course Of Treatment: Patient presents with gradually worsening edema and pain to LLE and gradually worsening SOB and chest pain for the past week and a half. Patient denies injury, falls, or trauma. Patient states she cannot walk from room to room without feeling SOB. A Venous US is negative for DVT. An EKG is of no acute concern. A CXR reveals Dr. Radford agrees to admit pt. However, pt would like to leave and will sign out AMA. Patient was advised to stay in order to rule out ACS. - Diagnoses Differential Diagnosis/HQI/PQRI: Positive: CHF, [place], Pneumonia, Unstable Angina Provider Diagnoses: Dyspnea, Chest pain, ACS (acute coronary syndrome) - Physician Notifications Discussed Care of Patient With: Albin Radford - hospitalist Time Discussed With Above Provider: 19:48 Instructed by Provider To: Admit As Inpatient Discharge - Sign-Out/Discharge Documenting (check all that apply): Discharge - admit to [facility] - Discharge Plan Condition: Fair Disposition: AGAINST MEDICAL ADVICE Referrals: No Primary Care Phys,NOPCP [Primary Care Provider] - - Billing Disposition and Condition Condition: FAIR Disposition: AMA The documentation as recorded by the Cassie rubio Julia accurately reflects the service I personally performed and the decisions made by Chasidy morales Emmanuel.
== END 2017-08-30 20:47 | disposition left against medical advice (07) ==
LOC: ED 17:13
DX: I24.9 Acute ischemic heart disease, unspecified (principal); R06.09 Other forms of dyspnea; R07.9 Chest pain, unspecified; I25.2 Old myocardial infarction; Z95.5 Presence of coronary angioplasty implant and graft; F17.210 Nicotine dependence, cigarettes, uncomplicated; Z88.1 Allergy status to other antibiotic agents; Z88.8 Allergy status to other drugs, medicaments and biological substances
CPT/HCPCS: 36415; 71045; 80053; 83605; 83880; 84484; 85025; 85379; 85610; 85730; 93005; 99283; A9270-GY

== ENCOUNTER 2018-03-09 11:41 | Emergency (ER) | payer OTHER ==
--- NOTE | 2018-03-09 12:13 | ED ---
Lower Extremity - HPI Summary HPI Summary: The pt is a 47 y/o obese female presenting to [facility] c/o of LLE pain since 4 days ago worsened today. She notes lower back pain, L outer hip pain, LLE numbness, loss of balance secondary to the hip pain, swelling of the LLE ( for a year, worse in the last few months, L knee pain, LLE tenderness and recurring boils on her abdomen. She denies any recent falls. The sharp LLE pain rated 6/ 10 in severity is aggravated by walking and lying on the L side. She has had similar sx before. She notes adverse reactions to Ibuprofen (vaginal bleeding) and Alleve (suicidal ideations). - History of Current Complaint Chief Complaint: EDGeneral Stated Complaint: LT SIDE PAIN Time Seen by Provider: 03/09/18 12:02 Hx Obtained From: Patient Hx Last Menstrual Period: 05/11/17 Onset of Pain: Days - 4 days Severity Currently: Moderate Pain Intensity: 6 Pain Scale Used: 0-10 Numeric Character Of Pain: Sharp Associated Signs And Symptoms: Positive: Swelling, Knee Pain - L knee Aggravating Factor(s): Ambulation, Other - Lying on the L side - Allergies/Home Medications Allergies/Adverse Reactions: Allergies Allergy/AdvReac Type Severity Reaction Status Date / Time erythromycin base Allergy Hives Verified 03/09/18 12:08 [From Erythrocin] dihydroergotamine AdvReac Palpitation Verified 03/09/18 12:08 [From Migranal] s gabapentin [From Neurontin] AdvReac Swelling Verified 03/09/18 12:08 ibuprofen AdvReac Bleeding Verified 03/09/18 12:08 naproxen [From Aleve] AdvReac Altered Verified 03/09/18 12:08 Mental Status sumatriptan [From Imitrex] AdvReac Palpitation Verified 03/09/18 12:08 s shingles vac AdvReac Swelling Uncoded 03/09/18 12:08 PMH/Surg Hx/FS Hx/Imm Hx Previously Healthy: No Endocrine/Hematology History: Denies: Hx Diabetes, Hx Thyroid Disease Cardiovascular History: Reports: Hx Myocardial Infarction - with stent placement Denies: Hx Hypertension Respiratory History: Denies: Hx Asthma, Hx Chronic Obstructive Pulmonary Disease (COPD) GI History: Denies: Hx Ulcer Sensory History: Denies: Hx Contacts or Glasses, Hx Hearing Aid Opthamlomology History: Denies: Hx Contacts or Glasses Neurological History: Reports: Hx Headaches - OCCASSIONALLY Psychiatric History: Denies: Hx Substance Abuse - Surgical History Surgery Procedure, Year, and Place: T&A. APPY. [place]. [place]. D&C's x2. tubal ligation - Immunization History Date of Tetanus Vaccine: unk Date of Influenza Vaccine: unk Infectious Disease History: No Infectious Disease History: Reports: Hx Shingles Denies: Hx Clostridium Difficile, Hx Hepatitis, Hx Human Immunodeficiency Virus (HIV), Hx of Known/Suspected MRSA, Hx Tuberculosis, Hx Known/Suspected VRE , Hx Known/Suspected VRSA, History Other Infectious Disease - HERPES SIMPLEX, Traveled Outside the [place] in Last 30 Days - Family History Known Family History: Positive: Cardiac Disease, Diabetes, Other - cancer - Social History Occupation: Employed Full-time Lives: With Family Alcohol Use: None Substance Use Type: Reports: None Smoking Status (MU): Current Every Day Smoker Type: Cigarettes Amount Used/How Often: 1 - 1 1/2 ppd Length of Time of Smoking/Using Tobacco: ~ 25 years Have You Smoked in the Last Year: Yes Review of Systems Constitutional: Other - Positive: Loss of balance secondary to L hip pain Positive: Other - Positive: lower back pain, L outer hip pain, L knee pain, swelling of the LLE ( for a year, worse in the last few months), LLE tenderness Skin: Other - Positve: recurring boils on her abdomen Positive: Numbness - of the LLE All Other Systems Reviewed And Are Negative: Yes Physical Exam - Summary Physical Exam Summary: Appearance: Well-appearing, obese, lying in bed comfortable Skin: Warm, dry, no obvious rash Eyes: sclera anicteric, no conjunctival pallor ENT: mucous membranes moist Neck: deferred Respiratory: No signs of respiratory distress Cardiovascular: Appears well perfused, pulses are nml Abdomen: deferred Musculoskeletal: LLE soft tissue fullness over the quadriceps; No masses found; Pain is over the point of the hip ;Pain with rotation into the lateral hip over the greater trochanter Neurological: Awake and alert, mentation is normal, speech is fluent and appropriate Psychiatric: affect is normal, does not appear anxious or depressed Triage Information Reviewed: Yes Vital Signs On Initial Exam: Initial Vitals Temp Pulse Resp BP Pulse Ox 98.3 F 79 16 164/87 98 03/09/18 11:47 03/09/18 11:47 03/09/18 11:47 03/09/18 11:47 03/09/18 11:47 Vital Signs Reviewed: Yes Diagnostics - Vital Signs Vital Signs Temp Pulse Resp BP Pulse Ox 03/09/18 11:47 98.3 F 79 16 164/87 98 - Laboratory Lab Statement: Any lab studies that have been ordered have been reviewed, and results considered in the medical decision making process. - Radiology L Hip/Pelvis X-ray Radiology Interpretation Completed By: Radiologist - IMPRESSION: NO ACUTE OSSEOUS INJURY. IF SYMPTOMS PERSIST, RECOMMEND REPEAT IMAGING. The ED physician reviewed this radiology report. - Ultrasound No standard instances Ultrasound Interpretation Completed By: Radiologist - Soft Tissue US IMPRESSION : NEGATIVE EXAM, IF THE PATIENT'S SYMPTOMS PERSIST CONSIDER MR IMAGING FOR FURTHER EVALUATION. The ED physician reviewed this radiology report. Lower Extremity Course/Dx - Course Course Of Treatment: A 47 year-old F presents to the ED with a CC of LLE pain since 4 days ago worsened today. She notes lower back pain, L outer hip pain, LLE numbness, loss of balance secondary to the hip pain, L knee pain, swelling of the LLE ( for a year, worse in the last few months), LLE tenderness and recurring boils on her abdomen. She denies any recent falls. The sharp LLE pain rated 6/10 in severity is aggravated by walking and lying on the L side. A physical exam revealed LLE soft tissue fullness over the quadriceps; No masses; pain is over the point of the hip; and pain with rotation into the lateral hip over the greater trochanter. A L Hip/Pelvis X-ray and Soft Tissue US are unremarkable. In the ED course, pt was given Oxycodone 10 mg PO twice and, Prednisone 40 mg PO which improved the symptoms. Patient will be discharged with a final Dx of hip bursitis. Pt is agreeable with this plan. Allergies noted. - Diagnoses Provider Diagnoses: Hip bursitis Discharge - Sign-Out/Discharge Documenting (check all that apply): Patient Departure - DC - Discharge Plan Condition: Good Disposition: HOME Prescriptions: Oxycodone TAB(NF) [Oxycodone HCl 10 MG] 10 mg PO Q6H PRN #10 tab MDD 3 PRN Reason: Pain Patient Education Materials: Hip Bursitis (ED) Referrals: Garcia Starkey MD [Medical Doctor] - 3 Days Additional Instructions: Return to ED for any new or worsening symptoms - Billing Disposition and Condition Condition: GOOD Disposition: Home - Attestation Statements Document Initiated by Maggie: Yes Documenting Scribe: Katelyn Tim Provider For Whom Maggie is Documenting (Include Credential): Dr. Jan Allen MD Scribe Attestation: Katelyn Pacheco, scribed for Dr. Jan Allen MD on 03/10/18 at 1447. Scribe Documentation Reviewed: Yes Provider Attestation: The documentation as recorded by the Katelyn rubio accurately reflects the service I personally performed and the decisions made by me, Dr. Jan Allen MD
[2018-03-09] MEDS ORDERED: oxyCODONE TAB* 5 MG TAB PO ONE ×2 (12:14→14:21)
[2018-03-09] MEDS ORDERED: predniSONE TAB* 20 MG PO ONE (12:16)
--- NOTE | 2018-03-09 13:05 | RAD ---
INDICATION: Swelling distal left thigh evaluate for mass. COMPARISON: There are no relevant prior studies available for comparison. TECHNIQUE: Multiple real-time images of the left thigh were obtained. FINDINGS: No mass or fluid collection is seen. IMPRESSION: NEGATIVE EXAM, IF THE PATIENT'S SYMPTOMS PERSIST CONSIDER MR IMAGING FOR FURTHER EVALUATION.
--- NOTE | 2018-03-09 13:27 | RAD ---
HISTORY: pain, left hip pain COMPARISONS: None VIEWS: 3 , Frontal view of the pelvis with frontal and frog-leg views of the left hip FINDINGS: BONE DENSITY: Normal. BONES: There is no displaced fracture. JOINTS: There is no arthropathy. ALIGNMENT: There is no dislocation. SOFT TISSUES: Unremarkable. OTHER FINDINGS: None. IMPRESSION: NO ACUTE OSSEOUS INJURY. IF SYMPTOMS PERSIST, RECOMMEND REPEAT IMAGING.
[2018-03-09 14:14] VITALS: BP 121/78
== END 2018-03-09 14:42 | disposition home or self-care (01) ==
LOC: ED 11:41
DX: M71.9 Bursopathy, unspecified (principal); F17.210 Nicotine dependence, cigarettes, uncomplicated; Z88.3 Allergy status to other anti-infective agents; Z88.8 Allergy status to other drugs, medicaments and biological substances
CPT/HCPCS: 99282; A9270-GY; J7512

== ENCOUNTER 2018-09-09 11:03 | Emergency (ER) | payer OTHER ==
[2018-09-09 11:30] VITALS: BP 126/69
--- NOTE | 2018-09-09 11:50 | UC ---
Respiratory Complaint HPI - HPI Summary HPI Summary: JUST OVER A WEEK OF COUGH AND CONGESTION. HAS SUBJECTIVE FEVER AND CHILLS. FEELS INTERMITTENTLY SHORT OF BREATH EVEN AT REST. WORSE WITH EXERTION. HAS SOME LEFT-SIDED PLEURITIC PAIN. WANTS TO MAKE SURE NO PNEUMONIA. ALSO STATES HER LEFT LEG HAS BEEN CHRONICALLY SWOLLEN AND PAINFUL FOR SEVERAL YEARS. FEELS WORSE RECENTLY. IMAGING NEGATIVE FOR SOFT TISSUE MASS, DVT LAST YEAR. HAS PCP FOLLOW-UP IN ABOUT 3 WEEKS. - History of Current Complaint Chief Complaint: UCRespiratory Stated Complaint: COUGH,BACK PAIN Time Seen by Provider: 09/09/18 11:33 Hx Obtained From: Patient Hx Last Menstrual Period: 08/07/18 Onset/Duration: Gradual Onset, Lasting Days, Still Present Timing: Constant Severity Initially: Moderate Severity Currently: Moderate Pain Intensity: 5 Pain Scale Used: 0-10 Numeric Character: Cough: Productive Aggravating Factors: Nothing Alleviating Factors: Nothing Associated Signs And Symptoms: Positive: Dyspnea, Fever, Chills, Pleuritic Chest Pain, URI, Nasal Congestion. Negative: Wheezing, Calf Pain - Allergies/Home Medications Allergies/Adverse Reactions: Allergies Allergy/AdvReac Type Severity Reaction Status Date / Time erythromycin base Allergy Hives Verified 09/09/18 11:31 [From Erythrocin] dihydroergotamine AdvReac Palpitation Verified 09/09/18 11:31 [From Migranal] s gabapentin [From Neurontin] AdvReac Swelling Verified 09/09/18 11:31 ibuprofen AdvReac Bleeding Verified 09/09/18 11:31 naproxen [From Aleve] AdvReac Altered Verified 09/09/18 11:31 Mental Status sumatriptan [From Imitrex] AdvReac Palpitation Verified 09/09/18 11:31 s shingles vac AdvReac Swelling Uncoded 09/09/18 11:31 Home Medications: Home Medications Acetaminophen [Mapap] 1,000 mg PO ONCE PRN 09/09/18 [History Confirmed 09/09/18] PMH/Surg Hx/FS Hx/Imm Hx Cardiovascular History: Cardiac Disease - STENTS - Surgical History Surgical History: Yes Surgery Procedure, Year, and Place: T&A. APPY. SCOTT. cesearean. D&C's x2. tubal ligation - Family History Known Family History: Positive: Cardiac Disease, Diabetes, Other - cancer - Social History Alcohol Use: None Substance Use Type: None Smoking Status (MU): Current Every Day Smoker Type: Cigarettes Amount Used/How Often: 1 - 1 1/2 ppd Length of Time of Smoking/Using Tobacco: ~ 25 years Have You Smoked in the Last Year: Yes Household Exposure Type: Cigarettes - Immunization History Most Recent Influenza Vaccination: UNK Most Recent Tetanus Shot: 2011 Most Recent Pneumonia Vaccination: UNK Review of Systems All Other Systems Reviewed And Are Negative: Yes Constitutional: Positive: Fever, Chills, Fatigue ENT: Positive: Nasal Discharge Respiratory: Positive: Shortness Of Breath, Cough Cardiovascular: Positive: Negative Gastrointestinal: Positive: Negative Musculoskeletal: Positive: Edema. Negative: Calf Tenderness Physical Exam Triage Information Reviewed: Yes Appearance: Well-Appearing, No Pain Distress, Well-Nourished Vital Signs: Initial Vital Signs Temp 97.8 F 09/09/18 11:25 Pulse 62 09/09/18 11:25 Resp 18 09/09/18 11:25 BP 126/69 09/09/18 11:25 Pulse Ox 99 09/09/18 11:25 Vital Signs Reviewed: Yes Eyes: Positive: Conjunctiva Clear ENT: Positive: Hearing grossly normal, Pharynx normal, TMs normal Neck: Positive: Supple, Nontender, No Lymphadenopathy Respiratory: Positive: No respiratory distress, No accessory muscle use, Other: - COARSE BREATH SOUNDS BILATERAL BASES Cardiovascular Exam: Normal Abdomen Description: Positive: Soft Musculoskeletal: Positive: Other: - LEFT UPPER LEG SLIGHT LARGER THAN RIGHT. NO CALF TENDERNESS OR CORDS PALPATED. Neurological: Positive: Alert Psychological: Positive: Age Appropriate Behavior Skin: Negative: Rashes Diagnostics - Radiology CXR Radiology Interpretation Completed By: Radiologist Summary of Radiographic Findings: NO EVIDENCE FOR ACTIVE CARDIOPULMONARY DISEASE. Respiratory Course/Dx - Course Course Of Treatment: CXR UNREMARKABLE. DISCUSSED ABX GIVEN LENGTH OF TIME OF ILLNESS. PT DECLINES. OFFERED STEROIDS FOR AIRWAY INFLAMMATION. PT DECLINES THIS WELL. TESSALON PERLES FOR COUGH. REST, HYDRATE, F/U IF NEEDED. PATIENT OFFERED ULTRASOUND OF HER LEFT LOWER EXTREMITY TO REEVALUATE GIVEN INCREASED PAIN. PATIENT DECLINES. STATES SHE WILL FOLLOW-UP WITH HER PCP IN SEVERAL WEEKS SCHEDULED. ADVISED TO GO DIRECTLY TO THE ER WITHOUT FAIL IF SHE DEVELOPS WORSENING SHORTNESS OF BREATH, CHEST PAIN, LEG PAIN, SWELLING OR ANY OTHER CONCERNING SYMPTOMS. - Differential Dx/Diagnosis Provider Diagnosis: Acute bronchitis Discharge - Sign-Out/Discharge Documenting (check all that apply): Patient Departure All imaging exams completed and their final reports reviewed: Yes - Discharge Plan Condition: Stable Disposition: HOME Prescriptions: Benzonatate CAP* [Tessalon CAP*] 1 - 2 cap PO TID PRN #30 cap PRN Reason: Cough Patient Education Materials: Acute Bronchitis (ED) Referrals: No Primary Care Phys,NOPCP [Primary Care Provider] - Additional Instructions: CXR UNREMARKABLE. YOUR SYMPTOMS ARE LIKELY VIRALLY MEDIATED AND SHOULD RESOLVE ON THEIR OWN WITH TIME. NO INDICATION FOR ANTIBIOTICS AT PRESENT. REST, HYDRATE , OTC MEDS NEEDED. COUGH MEDICINE NEEDED. SEEK FOLLOW-UP IF YOU ARE NOT IMPROVING OVER THE NEXT 1-2 WEEKS. KEEP YOUR PCP FOLLOW-UP ON 09/28/18. - Billing Disposition and Condition Condition: STABLE Disposition: Home
== END 2018-09-09 13:06 | disposition home or self-care (01) ==
LOC: UCEAST 11:03
DX: J20.9 Acute bronchitis, unspecified (principal); F17.210 Nicotine dependence, cigarettes, uncomplicated; Z88.1 Allergy status to other antibiotic agents; Z88.8 Allergy status to other drugs, medicaments and biological substances
CPT/HCPCS: 71046; 99212; G0463

== ENCOUNTER 2018-09-25 19:16 | Emergency (ER) | payer OTHER ==
[2018-09-25 19:42] VITALS: BP 139/76
[2018-09-25] MEDS ORDERED: Acyclovir* 200 MG CAP PO ONE ×2 (20:49→20:50)
[2018-09-25] MEDS ORDERED: HYDROcodone/ACETAMIN 5-325 MG* 1 TAB PO ONE (20:49)
--- NOTE | 2018-09-25 21:58 | UC ---
Skin Complaint HPI - HPI Summary HPI Summary: Patient reports a known history of herpes simplex outbreaks on her right auricle. Has had this for over 20 years. A few days ago developed an outbreak. Right ear is now entirely swollen and hearing is muffled. No fever or drainage from the ear. States she has been under a lot of stress recently it is probably what triggered this outbreak. Has tender lymph nodes right side of neck. Is requesting antiviral treatment. - History of Current Complaint Chief Complaint: UCSkin Time Seen by Provider: 09/25/18 19:20 Stated Complaint: R EAR PAIN Hx Obtained From: Patient Hx Last Menstrual Period: mid June Onset/Duration: Gradual Onset, Lasting Days, Still Present Timing: Constant Onset Severity: Moderate Current Severity: Moderate Pain Intensity: 4 Pain Scale Used: 0-10 Numeric Location: Ear (Right) Character: Swelling, Pain Aggravating Factor(s): Touch Alleviating Factor(s): Nothing Associated Signs & Symptoms: Positive: Tenderness. Negative: Nausea, Fever, Rash - Allergy/Home Medications Allergies/Adverse Reactions: Allergies Allergy/AdvReac Type Severity Reaction Status Date / Time erythromycin base Allergy Hives Verified 09/25/18 19:44 [From Erythrocin] dihydroergotamine AdvReac Palpitation Verified 09/25/18 19:44 [From Migranal] s gabapentin [From Neurontin] AdvReac Swelling Verified 09/25/18 19:44 ibuprofen AdvReac Bleeding Verified 09/25/18 19:44 naproxen [From Aleve] AdvReac Altered Verified 09/25/18 19:44 Mental Status sumatriptan [From Imitrex] AdvReac Palpitation Verified 09/25/18 19:44 s shingles vac AdvReac Swelling Uncoded 09/25/18 19:44 PMH/Surg Hx/FS Hx/Imm Hx - Additional Past Medical History Additional PMH: RECURRENT HERPES SIMPLEX OUTBREAKS RIGHT EAR Cardiovascular History: Cardiac Disease - Surgical History Surgical History: Yes Surgery Procedure, Year, and Place: T&A. APPY. [facility]. cesearean. D&C's x2. tubal ligation - Family History Known Family History: Positive: Cardiac Disease, Diabetes, Other - cancer - Social History Alcohol Use: None Substance Use Type: None Smoking Status (MU): Current Every Day Smoker Type: Cigarettes Amount Used/How Often: 1 - 1 1/2 ppd Length of Time of Smoking/Using Tobacco: ~ 25 years Have You Smoked in the Last Year: Yes Household Exposure Type: Cigarettes - Immunization History Most Recent Influenza Vaccination: UNK Most Recent Tetanus Shot: 2011 Most Recent Pneumonia Vaccination: UNK Review of Systems All Other Systems Reviewed And Are Negative: Yes Constitutional: Positive: Negative Skin: Positive: Other - HERPES OUTBREAK RIGHT EAR ENT: Positive: Other - RIGHT EAR PAIN AND SWELLING Respiratory: Positive: Negative Cardiovascular: Positive: Negative Gastrointestinal: Positive: Negative Physical Exam Triage Information Reviewed: Yes Appearance: Well-Appearing, Well-Nourished, Pain Distress - MILD Vital Signs: Initial Vital Signs Temp 98.3 F 09/25/18 19:34 Pulse 64 09/25/18 19:34 Resp 16 09/25/18 19:34 BP 139/76 09/25/18 19:34 Pulse Ox 98 09/25/18 19:34 Vital Signs Reviewed: Yes Eyes: Positive: Conjunctiva Clear ENT: Positive: Hearing grossly normal, Other - RIGHT AURICLE EDEMATOUS AND TENDER. VESICULAR LESION IN [place] Neck: Positive: Supple, Tenderness @ - RIGHT SPFL CERVICAL LAD, Enlarged Nodes @ - RIGHT SPFL CERVICAL LAD Respiratory: Positive: No respiratory distress, No accessory muscle use Cardiovascular: Positive: Pulses Normal Musculoskeletal: Positive: No Edema Neurological: Positive: Alert Psychological: Positive: Age Appropriate Behavior Skin: Positive: Other - VESICULAR LESION AND SWELLING RIGHT AURICLE Course/Dx - Course Course Of Treatment: PT STATES HER SX ARE C/W HER RECURRENT HERPES OUTBREAKS. WILL COVER WITH AN ANTIVIRAL. PT WILL F/U WITH HER PCP IN [place] IF NOT IMPROVING EXPECTED. - Diagnoses Provider Diagnosis: Herpes simplex Discharge - Sign-Out/Discharge Documenting (check all that apply): Patient Departure All imaging exams completed and their final reports reviewed: No Studies - Discharge Plan Condition: Stable Disposition: HOME Prescriptions: HYDROcodone/ACETAMIN 5-325 MG* [[place] 5-325 TAB*] 1 tab PO Q6H PRN #15 tab MDD 4 PRN Reason: Pain Valacyclovir HCl [Valacyclovir] 2,000 mg PO BID #4 tablet Patient Education Materials: Earache (ED) Referrals: No Primary Care Phys,NOPCP [Primary Care Provider] - Additional Instructions: GIVEN YOUR KNOWN HISTORY OF HERPES SIMPLEX INFECTION TO YOUR RIGHT EAR WILL COVER SUCH WITH ANTIVIRAL MEDICATION. USE OTC MEDICATIONS NEEDED FOR DISCOMFORT. HYDROCODONE FOR BREAKTHROUGH. FOLLOW-UP WITH YOUR PCP IN [place]. I RECOMMEND YOU DISCUSS DAILY PROPHYLACTIC THERAPY GIVEN YOUR FREQUENT OUTBREAKS. - Billing Disposition and Condition Condition: STABLE Disposition: Home
== END 2018-09-25 21:20 | disposition home or self-care (01) ==
LOC: UCEAST 19:16
DX: B00.9 Herpesviral infection, unspecified (principal); I51.9 Heart disease, unspecified; Z88.6 Allergy status to analgesic agent; Z88.1 Allergy status to other antibiotic agents; Z88.7 Allergy status to serum and vaccine; Z88.8 Allergy status to other drugs, medicaments and biological substances; F17.210 Nicotine dependence, cigarettes, uncomplicated
CPT/HCPCS: 99213; A9270-GY; G0463

== ENCOUNTER 2018-10-27 20:31 | Emergency (ER) | payer OTHER ==
--- OUTSIDE RECORDS SUMMARY | 2018-10-27 20:35 | XMS REPORT ---
:1970 Author Organization [employer] Care Team Providers Name Role Phone Tequila Melendez Unavailable Unavailable PROBLEMS Type Condition ICD9-CM [id number] Onset Condition SNOMED Code Code Code Dates Status Problem Body mass index Z68.42 Active 141332643 (BMI) of 45.0-49.9 in adult Problem Essential I10 Active 72965785 hypertension Problem Acute left-sided M54.42 Active 726286000 low back pain with left-sided sciatica Problem Morbid (severe) E66.01 Active 54621797241048 obesity due to excess calories ALLERGIES No Information ENCOUNTERS Encounter Location Date Diagnosis Counts Include [facility] [address] [facility] [place], [place] [address] Counts Include [address] [facility] [address] [facility] [place], [place] [address] Counts Include [address] [address] [place], [place] [address] Counts Include [address] [facility] [address] [facility] [place], [place], Morbid ([place]) [place] [address] to excess calories E66.01 and Body mass index (BMI) of 45.0-49.9 in adult Z68.42 Counts Include [address] [facility] [address] [place], Sep, [place] [address] pain with left-sided sciatica M54.42 ; Candidiasis B37.9 ; Morbid (severe) obesity due to excess calories E66.01 ; Body mass index (BMI) of 45.0-49.9 in adult Z68.42 and Essential hypertension I10 IMMUNIZATIONS No Known Immunizations SOCIAL HISTORY Never Assessed REASON FOR REFERRAL FUNCTIONAL STATUS PLAN OF CARE Activity Details Follow Up 1-2 Months Reason: VITAL SIGNS Weight 284.8 2018-10-17 Height 63.5 in 2018-10-17 BMI 49.65 kg/m2 2018-10-17 MEDICATIONS Medication Instructions Dosage Frequency Start End Duration Status Date Date Nystatin Externally Twice 1 application 12h 24 Sep, 17 Dec, 28 days Active 921424 UNIT/GM a day to affected 2018 2018 area Metoprolol Orally twice a 1 capsule Active Succinate 50 day. mg Aspir-81 81 MG Orally Once a 1 tablet 24h Active day [place] 5-325 MG Orally every 6 1 tablet as 6h Active hrs needed PROCEDURES Procedure Date Ordered Result Body Site Med Nutrition,Init,15 min,Indiv October 17, 2018 BODY MASS INDEX DOCD October 17, 2018 RESULTS No Results REASON FOR VISIT initial medical nutrition therapy visit for obesity Insurance Providers [facility] Member Patient Patient Patient Patient Patient Subscriber Subscriber Subscriber Group Insurance Plan Plan Plan Plan ID Relationship Address Phone Name Date of ID Name Date of No Type Insurance Insurance Insurance Coverage to Subscriber Address Phone Name Dates [place] [phone] [place] self Shahana [id number] Essential [place] [address] Essential [place] [address] [place] [address] Plan 1 2 Medical Medical [place] [phone] [place] self Shahana [id number] Ess Plan 1 [id number] Ess Plan 1 [address] [address] [place] [address] [place] [address] [facility] MEDICAL (GENERAL) HISTORY Type Description Date Medical History shingles on right ear Medical History herpes on the Right ear Medical History Heart attack 07/2017 Medical History relapsing polychondritis right ear Medical History smoke Medical History dysplasia Surgical History tonsillectomy Surgical History appendectomy Surgical History gallbladder Surgical History x1 Surgical History miscarriage cleaning x1 Surgical History Stent in the heart Surgical History BTL
--- OUTSIDE RECORDS SUMMARY | 2018-10-27 20:36 | XMS REPORT ---
:1970 Author Organization [employer] [facility] Address [address] [place] [id number] Care Team Providers Name Role Phone Juli Mina Unavailable Unavailable PROBLEMS Type Condition ICD9-CM [id number] Onset Condition SNOMED Code Code Code Dates Status Problem Body mass index Z68.42 Active 058805363 (BMI) of 45.0-49.9 in adult Problem Essential I10 Active 50916511 hypertension Problem Acute left-sided M54.42 Active 579831721 low back pain with left-sided sciatica Problem Morbid (severe) E66.01 Active 92653826087193 obesity due to excess calories ALLERGIES Substance Reaction Event Type Date Status Ibuprofen bleeding Drug Allergy Sep, Active Erythromycin Hives Drug Allergy Sep, Active Aleve suicidal ideation Drug Allergy Sep, Active Zostavax arm swelling Drug Allergy Sep, Active Migranal palpitations Drug Allergy Sep, Active ENCOUNTERS Encounter Location Date Diagnosis [facility] [address] [place], [place] [address] [place] [id number] [place], [place] [address] [place] [id number] [place], Sep, [place] [address] pain with left-sided sciatica M54.42 ; Candidiasis B37.9 ; Morbid (severe) obesity due to excess calories E66.01 ; Body mass index (BMI) of 45.0-49.9 in adult Z68.42 and Essential hypertension I10 IMMUNIZATIONS No Known Immunizations SOCIAL HISTORY Never Assessed REASON FOR REFERRAL FUNCTIONAL STATUS PLAN OF CARE Activity Details Follow Up 3 Months Reason: VITAL SIGNS Temperature 97.6 degrees Fahrenheit 2018-09-28 Heart Rate 20 2018-09-28 Weight 283.1 2018-09-28 Height 63.5 in 2018-09-28 BMI 49.36 kg/m2 2018-09-28 Oximetry 97 % 2018-09-28 Blood pressure systolic 117 mm Hg 2018-09-28 Blood pressure diastolic 80 mm Hg 2018-09-28 MEDICATIONS Medication Instructions Dosage Frequency Start End Duration Status Date Date Metoprolol Orally twice a 1 capsule Active Succinate 50 day. mg Nystatin Externally Twice 1 application 12h 24 Sep, 17 Dec, 28 days Active 853594 UNIT/GM a day to affected 2018 2018 area [place] 5-325 MG Orally every 6 1 tablet as 6h Active hrs needed Aspir-81 81 MG Orally Once a 1 tablet 24h Active day PROCEDURES Procedure Date Ordered Result Body Site BMI >=25 and Follow Up Plan Documented September 28, 2018 BODY MASS INDEX DOCD September 28, 2018 SMOKING + 2ND HAND ASSESSED September 28, 2018 Oxygen saturation results documented and reviewed September 28, 2018 BLOOD PRESSURE, MEASURED September 28, 2018 RESULTS No Results REASON FOR VISIT left leg pain on Heart medication, PVP:PAP,PHQ-2,TOBACCO,BMI,FLU,TETANUS.CM, RHIO. ASHOK. CHERRI for previous PCP and Specialists. - BL Insurance Providers [facility] Member Patient Patient Patient Patient Patient Subscriber Subscriber Subscriber Group Insurance Plan Plan Plan Plan ID Relationship Address Phone Name Date of ID Name Date of No Type Insurance Insurance Insurance Coverage to Subscriber Address Phone Name Dates [place] [phone] [place] self Shahana [id number] [address] [facility] [address] [place] [address] [place] [address] Plan 1 2 Medical Medical [place] [phone] [place] self Shahana [id number] Ess Plan 1 [id number] 08 Ess Plan 1 [place] [address] [place] [address] [place] [address] [facility] MEDICAL (GENERAL) HISTORY Type Description Date [...]
[2018-10-27 20:48] VITALS: BP 110/70
--- NOTE | 2018-10-27 20:52 | UC ---
Skin Complaint HPI - HPI Summary HPI Summary: 48 yo female presents with right ear pain. She tells me that she has "chronic shingles" that only involve her right ear. She has had this for many years and gets outbreaks a few times a year requiring antivirals and pain medication - per pt. Sometime in 2014 - She saw infectious disease in the past and was told she had polychondritis and referred to rheumatology. She saw rheum, who agreed with dx of polychondritis and placed pt on prednisone, but pt did not like how the prednisone made her feel and personally agreed with the dx of shingles more than polychondritis. Since that time she has been treating this area as shingles. Currently, she tells me that yesterday she developed right ear pain and swelling that radiates into her right cheek. No fever or injury. No audio disturbances. - History of Current Complaint Chief Complaint: UCEar Time Seen by Provider: 10/27/18 20:42 Stated Complaint: EAR PAIN Hx Obtained From: Patient Hx Last Menstrual Period: August 2018 Onset/Duration: Sudden Onset Onset Severity: Moderate Current Severity: Moderate Pain Intensity: 7 Pain Scale Used: 0-10 Numeric - Allergy/Home Medications Allergies/Adverse Reactions: Allergies Allergy/AdvReac Type Severity Reaction Status Date / Time erythromycin base Allergy Hives Verified 10/27/18 20:39 [From Erythrocin] dihydroergotamine AdvReac Palpitation Verified 10/27/18 20:39 [From Migranal] s gabapentin [From Neurontin] AdvReac Swelling Verified 10/27/18 20:39 ibuprofen AdvReac Bleeding Verified 10/27/18 20:39 naproxen [From Aleve] AdvReac Altered Verified 10/27/18 20:39 Mental Status sumatriptan [From Imitrex] AdvReac Palpitation Verified 10/27/18 20:39 s shingles vac AdvReac Swelling Uncoded 10/27/18 20:39 PMH/Surg Hx/FS Hx/Imm Hx Cardiovascular History: Hypertension, Myocardial Infarction - Surgical History Surgical History: Yes Surgery Procedure, Year, and Place: T&A. APPY. [facility]. cesearean. D&C's x2. tubal ligation - Family History Known Family History: Positive: Cardiac Disease, Diabetes, Other - cancer - Social History Lives: With Family Alcohol Use: None Substance Use Type: None Smoking Status (MU): Current Every Day Smoker Type: Cigarettes Amount Used/How Often: 1 - 1 1/2 ppd Length of Time of Smoking/Using Tobacco: ~ 25 years Have You Smoked in the Last Year: Yes Household Exposure Type: Cigarettes - Immunization History Most Recent Influenza Vaccination: UNK Most Recent Tetanus Shot: 2011 Most Recent Pneumonia Vaccination: UNK Review of Systems All Other Systems Reviewed And Are Negative: Yes Constitutional: Positive: Negative Skin: Positive: Negative Eyes: Positive: Negative ENT: Positive: Ear Ache Respiratory: Positive: Negative Cardiovascular: Positive: Negative Neurological: Positive: Negative Psychological: Positive: Negative Physical Exam - Summary Physical Exam Summary: GENERAL: NAD. WDWN. No pain distress. SKIN: No rashes, sores, lesions, or open wounds. HEENT: Head: AT/NC Eyes: EOM intact. Conjunctiva clear without inflammation or discharge. Ears: Hearing grossly normal. LEFT ear WNL and TM intact. RIGHT EAR : Moderate edema at antihelix appearing chronic with mild ear canal edema. Slight erythema. TTP about whole ear. No blisters, lesions, or pustules. Nose: Nasal mucosa pink and moist. NTTP maxillary and frontal sinus. Throat: Posterior oropharynx without exudates, erythema, or tonsillar enlargement. Uvula midline. NECK: Supple. Nontender. No lymphadenopathy. CHEST: No accessory muscle use. Breathing comfortably and in no distress. CV: Pulses intact. NEURO: Alert. PSYCH: Age appropriate behavior. Triage Information Reviewed: Yes Vital Signs: Initial Vital Signs Temp 97.9 F 10/27/18 20:40 Pulse 69 10/27/18 20:40 Resp 18 10/27/18 20:40 BP 110/70 10/27/18 20:40 Pulse Ox 100 10/27/18 20:40 Vital Signs Reviewed: Yes Course/Dx - Course Course Of Treatment: I discussed with the patient that I agree with the previous dx of polychondritis and recommended that she seek another rheum opinion if she was not satisfied with the initial dx. She refused to do this and is adamant that this is shingles. She is requesting pain medication here and to take home, as pharmacies are closed at this hour, as well as antivirals. She was given a dose of norco and acyclovir in the clinic and none to take home - and will send rx for 2 days of norco and antivirals. Although her iSTOP is ok - At this point, I have a suspicion for potential drug seeking behavior and stressed the importance of appropriate follow up with PCP or specialist for this chronic issue. iSTOP Reference #: [id number] - Diagnoses Provider Diagnosis: Right ear pain Discharge - Sign-Out/Discharge Documenting (check all that apply): Patient Departure All imaging exams completed and their final reports reviewed: No Studies - Discharge Plan Condition: Stable Disposition: HOME Prescriptions: HYDROcodone/ACETAMIN 5-325 MG* [[place] 5-325 TAB*] 1 tab PO Q8H PRN #9 tab MDD 3 PRN Reason: Pain Valacyclovir HCl [Valacyclovir] 2,000 mg PO BID #4 tab Patient Education Materials: Shingles (ED) Referrals: No Primary Care Phys,NOPCP [Primary Care Provider] - Additional Instructions: If you develop a fever, shortness of breath, chest pain, new or worsening symptoms - please call your PCP or go to the ED immediately. - Billing Disposition and Condition Condition: STABLE Disposition: Home
[2018-10-27] MEDS ORDERED: Acyclovir* 200 MG CAP PO ONE (21:02)
[2018-10-27] MEDS ORDERED: HYDROcodone/ACETAMIN 5-325 MG* 1 TAB PO ONE (21:02)
== END 2018-10-27 21:10 | disposition home or self-care (01) ==
LOC: UCEAST 20:31
DX: H92.01 Otalgia, right ear (principal); I10 Essential (primary) hypertension; F17.210 Nicotine dependence, cigarettes, uncomplicated; Z88.1 Allergy status to other antibiotic agents; Z88.5 Allergy status to narcotic agent; Z88.8 Allergy status to other drugs, medicaments and biological substances; Z88.7 Allergy status to serum and vaccine; Z86.19 Personal history of other infectious and parasitic diseases
CPT/HCPCS: 99202; A9270-GY; G0463

== ENCOUNTER 2019-04-28 16:51 | Emergency (ER) | payer OTHER ==
--- OUTSIDE RECORDS SUMMARY | 2019-04-28 16:58 | XMS REPORT | Summary of Care ---
:1970 Author Organization [facility] Address [address] [place] [address] Care Team Providers Name Role Phone Provider, Unknown Primary Care Provider Unavailable Reason for Referral Refer to Department Only (Routine) Status Reason Specialty Diagnoses / Referred By Referred To Contact Procedures Contact Authorized Neurodiagnostic Diagnoses Numbness and tingling of left leg Pain in left thigh [facility] [place] [facility] [address] [place] [address] [place] [address] Reason for Visit Refer to Department Only (Routine) Status Reason Specialty Diagnoses / Referred By Referred To Contact Procedures Contact Authorized Neurodiagnostic Diagnoses Numbness and tingling of left leg Pain in left thigh [facility] [place] [facility] [address] [place] [address] [place] [address] Encounter Details Date Type Department Care Team Description 03/03/2019 Hospital Encounter [facility] Neurodiagnostics Lab Outpatient [address] [place] [address] Allergies Active Allergy Reactions Severity Noted Date Comments Naproxen Sodium Other 03/26/2005 "severe depression and induction of menses" Erythromycin Hives 03/26/2005 Ibuprofen Rash 09/15/2002 "induction of menses" Sumatriptan Succinate Cardiac Reaction 03/26/2005 Pain, and fast heart beat Dihydroergotamine Cardiac Reaction 06/05/2013 Naproxen Sodium Swelling 04/04/2013 Fd&C Yellow #6-Gabapentin Swelling 04/06/2013 Lips-tongue Zoster Vaccine Live Other 07/06/2013 unknown documented as of this encounter (statuses as of 03/05/2019) Medications Medication Sig Dispensed Refills Start Date End Date Status ASPIRIN 81 PO Take by mouth. 0 Active metoprolol (LOPRESSOR) Take 50 mg by 0 Active 50 MG Oral Tab mouth TWICE DAILY. HYDROcodone-acetaminop Take 1 Tab by 0 Active hen (NORCO) 5-325 MG mouth EVERY SIX Oral Tab HOURS NEEDED (Left Leg Pain). 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 documented as of this encounter (statuses as of 03/05/2019) Resolved Problems Problem Noted Date Resolved Date Transaminitis 05/01/2008 10/19/2013 Other specified pre-operative examination 03/26/2005 10/19/2013 Sterilization 03/16/2005 10/19/2013 Other general symptoms(780.99) 04/26/2004 10/19/2013 Premature rupture of membranes in , antepartum 04/06/2004 10/19/2013 Decreased movements, affecting management of mother, 03/25/20042013 antepartum Other specified screening 12/06/2003 10/19/2013 Normal delivery 10/02/2003 10/19/2013 documented as of this encounter (statuses as of 03/05/2019) Social History Tobacco Use Types Packs/Day Years Used Date Current Every Day Smoker Cigarettes 1 20 Smokeless Tobacco: Never Used Comments: smokes Alcohol Use Drinks/Week oz/Week Comments No rare Sex Assigned at Date Recorded Not on file Job Start Date Occupation Industry Not on file Not on file Not on file Travel History Travel Start Travel End No recent travel history available. documented as of this encounter Last Filed Vital Signs Not on filedocumented in this encounter Progress Notes Geri Das LPN - 03/03/2019 1:23 PM [facility] [address] [place] [address] Patient: Shahana Canas Sex: female Date of : 1970 Handedness: Right Diabetic: Patient is not diabetic Date of test: 03/03/2019 Technologist's Notes: Human Resources Assistant: Geri Das LPN documented in this encounter Plan of Treatment Name Type Priority Associated Diagnoses Order Schedule REFER TO EMG Referral Routine Numbness and tingling of 1 Occurrences starting left leg 03/03/2019 until 03/03/2019 Pain in left thigh Health Maintenance Due Date Last Done Comments PNEUMOCOCCAL 0-64 YRS (1 of 1977 1 - PPSV23) DEPRESSION SCREENING 1983 MAMMOGRAM (SCREENING) 2011 PAP SMEAR 02/14/2012 02/13/2009, 02/21/2008, 02/15/2007, Additional history exists INFLUENZA VACCINE (#1) 2019 DIABETES SCREENING 12/27/2019 12/26/2018, 12/26/2018, 06/28/2002, Additional history exists LIPID DISORDER SCREENING 01/26/2020 01/25/2019, 02/21/2008 HIV SCREENING Completed 04/05/2002 HPV IMMUNIZATION SERIES Aged Out No longer eligible based on patient's age to complete this topic MENINGOCOCCAL VACCINE IMM Aged Out No longer eligible based on patient's age to complete this topic documented as of this encounter Results Not on filedocumented in this encounter Visit Diagnoses Diagnosis Numbness and tingling of left leg Disturbance of skin sensation Pain in left thigh documented in this encounter documented as of this encounter
[2019-04-28 17:22] VITALS: BP 137/77
--- NOTE | 2019-04-28 18:01 | UC ---
Skin Complaint HPI - HPI Summary HPI Summary: She says that she periodically gets swelling and pain in her right ear which she has been diagnosed as shingles. She usually takes antiviral and it goes away. It started this morning. She had a recent URI. - History of Current Complaint Chief Complaint: UCSkin Time Seen by Provider: 04/28/19 17:41 Stated Complaint: SHINGLES IN RT EAR Hx Obtained From: Patient Hx Last Menstrual Period: August 2018 Onset/Duration: Sudden Onset Onset Severity: Moderate Current Severity: Moderate Pain Intensity: 8 Location: Discrete, Ear (Right) Aggravating Factor(s): Nothing Alleviating Factor(s): Nothing Associated Signs & Symptoms: Positive: Negative - Allergy/Home Medications Allergies/Adverse Reactions: Allergies Allergy/AdvReac Type Severity Reaction Status Date / Time erythromycin base Allergy Hives Verified 04/28/19 17:22 [From Erythrocin] dihydroergotamine AdvReac Palpitation Verified 04/28/19 17:22 [From Migranal] s gabapentin [From Neurontin] AdvReac Swelling Verified 04/28/19 17:22 ibuprofen AdvReac Bleeding Verified 04/28/19 17:22 naproxen [From Aleve] AdvReac Altered Verified 04/28/19 17:22 Mental Status sumatriptan [From Imitrex] AdvReac Palpitation Verified 04/28/19 17:22 s shingles vac AdvReac Swelling Uncoded 04/28/19 17:22 PMH/Surg Hx/FS Hx/Imm Hx Previously Healthy: Yes - Surgical History Surgical History: Yes Surgery Procedure, Year, and Place: [facility]. tubal ligation - Family History Known Family History: Positive: Cardiac Disease, Diabetes, Other - cancer - Social History Alcohol Use: None Substance Use Type: None Smoking Status (MU): Heavy Every Day Tobacco Smoker Type: Cigarettes Amount Used/How Often: 1 - 1 1/2 ppd Length of Time of Smoking/Using Tobacco: ~ 25 years Have You Smoked in the Last Year: Yes Household Exposure Type: Cigarettes - Immunization History Most Recent Influenza Vaccination: UNK Most Recent Tetanus Shot: 2011 Most Recent Pneumonia Vaccination: UNK Review of Systems All Other Systems Reviewed And Are Negative: Yes Constitutional: Positive: Negative Physical Exam - Summary Physical Exam Summary: She is nontoxic in appearance with stable vital signs. Triage Information Reviewed: Yes Appearance: Well-Appearing Vital Signs: Initial Vital Signs Temp 99.4 F 04/28/19 17:18 Pulse 88 04/28/19 17:18 Resp 18 04/28/19 17:18 BP 137/77 04/28/19 17:18 Pulse Ox 97 04/28/19 17:18 Vital Signs Reviewed: Yes ENT Exam: Other - Her right auricle is diffusely swollen. It is not erythematous. I'm unable to see into the canal. Dental Exam: Normal Neck exam: Normal Neck: Positive: Enlarged Nodes @ - Mild posterior cervical lymphadenopathy Respiratory Exam: Normal Course/Dx - Course Course Of Treatment: I guess that this possibly could be shingles. She is adamant about the treatment that she has used in the past and I will try it. I recommended follow -up with her PCP if not improved. - Diagnoses Provider Diagnosis: Shingles Discharge ED - Sign-Out/Discharge Documenting (check all that apply): Patient Departure All imaging exams completed and their final reports reviewed: No Studies - Discharge Plan Condition: Stable Disposition: HOME Prescriptions: HYDROcodone/ACETAMIN 5-325 MG* [[place] 5-325 TAB*] 1 tab PO Q6H PRN #20 tab MDD 4 PRN Reason: Pain ValACYclovir (*) [Valtrex 1 GM(*)] 1 gm PO TID #21 tab Patient Education Materials: Shingles (ED) Referrals: No Primary Care Phys,NOPCP [Primary Care Provider] - - Billing Disposition and Condition Condition: STABLE Disposition: Home
== END 2019-04-28 18:05 | disposition home or self-care (01) ==
LOC: UCEAST 16:51
DX: B02.9 Zoster without complications (principal); F17.210 Nicotine dependence, cigarettes, uncomplicated; Z88.1 Allergy status to other antibiotic agents; Z88.8 Allergy status to other drugs, medicaments and biological substances; Z88.6 Allergy status to analgesic agent; Z88.7 Allergy status to serum and vaccine
CPT/HCPCS: 99212; G0463

== ENCOUNTER 2019-06-26 14:44 | Emergency (ER) | payer OTHER ==
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
[2019-06-26] MEDS ORDERED: Lidocaine PATCH 5%* 1 PATCH TRANSDERM ONE (16:12)
[2019-06-26 16:30] LABS: ABS Basophils 0.1 10^3/ul (0-0.2); ABS Eosinophils 0.1 10^3/ul (0-0.6); ABS Lymphocytes 2.4 10^3/ul (1.0-4.8); ABS Monocytes 0.5 10^3/ul (0-0.8); ABS Neutrophils 5.7 10^3/ul (1.5-7.7); Eosinophil % 1.2 %; Hematocrit 47 % (35-47); Hemoglobin 16.9 g/dL (12.0-16.0); Lymphocyte % 26.9 %; Mean Corpuscular HGB Conc 36 g/dL (31-36); Mean Corpuscular Hemoglobin 33 pg (27-31); Mean Corpuscular Volume 92 fL (80-97); Mean Platelet Volume 8.9 fL (7.4-10.4); Nucleated Red Blood Cells % 0.1; Platelet Count 196 10^3/uL (150-450); Red Blood Count 5.17 10^6 /uL (3.70-4.87); Red Cell Distribution Width 13 % (10-15); White Blood Count 8.8 10^3/uL (3.5-10.8)
[2019-06-26 16:47] LABS: ALT 26 U/L (7-52); AST 19 U/L (13-39); Albumin 3.9 g/dL (3.2-5.2); Albumin/Globulin Ratio 1.3 (1-3); Alkaline Phosphatase 106 U/L (34-104); Anion Gap 6 mmol/L (2-11); BUN/Creatinine Ratio 14.9 (8-20); Blood Urea Nitrogen 10 mg/dL (6-24); C Reactive Protein 16.13 mg/L (<8.01); CO2 Carbon Dioxide 25 mmol/L (22-32); Chloride 106 mmol/L (101-111); EGFR African American 114.2 (>60); EGFR Non-African American 94.3 (>60); Globulin 3.1 g/dL (2-4); Glucose 100 mg/dL (70-100); Sodium 137 mmol/L (135-145)
[2019-06-26 16:49] LABS: HCG Pregnancy < 0.60 mIU/mL
[2019-06-26 17:45] VITALS: BP 148/80
[2019-06-26 18:27] LABS: Erythrocyte Sed Rate 8 mm/Hr (0-19)
[2019-06-26] MEDS ORDERED: Lidocaine Patch REMOVE* 1 NOTE MISC SCH (21:00)
== END 2019-06-26 17:44 | disposition home or self-care (01) ==
LOC: ED 14:44
DX: M54.42 Lumbago with sciatica, left side (principal); M51.36 Other intervertebral disc degeneration, lumbar region; R51 Headache; I25.2 Old myocardial infarction; Z79.82 Long term (current) use of aspirin; Z95.5 Presence of coronary angioplasty implant and graft; Z88.6 Allergy status to analgesic agent; Z88.1 Allergy status to other antibiotic agents; Z88.5 Allergy status to narcotic agent; Z88.7 Allergy status to serum and vaccine; Z88.8 Allergy status to other drugs, medicaments and biological substances; F17.210 Nicotine dependence, cigarettes, uncomplicated
CPT/HCPCS: 36415; 72131; 80053; 84702; 85025; 85652; 86140; 99283; A9270-GY

== ENCOUNTER 2020-07-05 07:45 | Inpatient (IN) ==
[2020-07-05] MEDS ORDERED: NS 0.9% 1000 ml BAG 1,000 ML IV ONE (08:23)
[2020-07-05 08:59] LABS: ABS Lymphocytes 2.2 10^3/ul (1.0-4.8); ABS Neutrophils 6.5 10^3/ul (1.5-7.7); Eosinophil % 0.3 %; Hematocrit 49 % (35-47); Hemoglobin 16.8 g/dL (12.0-16.0); Lymphocyte % 22.8 %; Mean Corpuscular HGB Conc 35 g/dL (31-36); Mean Corpuscular Hemoglobin 29 pg (27-31); Mean Corpuscular Volume 85 fL (80-97); Mean Platelet Volume 9.9 fL (7.4-10.4); Platelet Count 204 10^3/uL (150-450); Red Blood Count 5.74 10^6 /uL (3.70-4.87); Red Cell Distribution Width 12 % (10-15); White Blood Count 9.9 10^3/uL (3.5-10.8)
[2020-07-05 09:06] LABS: ALT 65 U/L (7-52); AST 45 U/L (13-39); Albumin 3.9 g/dL (3.2-5.2); Albumin/Globulin Ratio 1.2 (1-3); Alkaline Phosphatase 131 U/L (34-104); Anion Gap 13 mmol/L (2-11); BUN/Creatinine Ratio 31.7 (8-20); Blood Urea Nitrogen 19 mg/dL (6-24); CO2 Carbon Dioxide 22 mmol/L (22-32); Calcium 10.7 mg/dL (8.6-10.3); Chloride 105 mmol/L (101-111); EGFR African American 129.1 (>60); EGFR Non-African American 106.7 (>60); Globulin 3.2 g/dL (2-4); Glucose 115 mg/dL (70-100); Magnesium 1.5 mg/dL (1.9-2.7); Potassium 3.6 mmol/L (3.5-5.0); Sodium 140 mmol/L (135-145); Total Protein 7.1 g/dL (6.4-8.9)
[2020-07-05] MEDS ORDERED: Magnesium Sulfate 2 gm BAG 2 GM/50 ML BAG IVPB ONE (09:08)
[2020-07-05] MEDS ORDERED: Diltiazem IV push/loading dose 5 MG/ML 5 ML vial (25 mg) IV SLOW PU ONE (09:11)
[2020-07-05 09:19] LABS: Acetaminophen < 15 mcg/mL; Alcohol, S < 10 mg/dL (<10)
[2020-07-05] MEDS ORDERED: Metoprolol Tartrate 5 mg VIAL 5 ml VIAL (1 mg/ml) IV ONE (10:15)
[2020-07-05] MEDS ORDERED: Metoprolol Tartrate 5 mg VIAL 5 ml VIAL (1 mg/ml) ONE (10:36)
[2020-07-05] MEDS ORDERED: Al Hydrox/Mg Hydrox/Simet LIQ 30 ML UDC PO PRN (10:46)
[2020-07-05] MEDS ORDERED: Magnesium Sulfate IV 3 GM in NS 0.9% 100 ml BAG 100 ML IVPB ONE (11:04)
[2020-07-05 11:26] LABS: Troponin I 0.01 ng/mL (<0.03)
[2020-07-05] MEDS ORDERED: NS 0.9% 1000 ml BAG 1,000 ML IV SCH (11:45)
[2020-07-05 12:07] LABS: Urine Appearance Cloudy; Urine Bilirubin Negative (Negative); Urine Blood Negative (Negative); Urine Color Yellow; Urine Glucose Negative (Negative); Urine Ketones 2+ (Negative); Urine Nitrite Negative (Negative); Urine Protein 2+(100 mg/dL) (Negative); Urine Specific Gravity 1.026 (1.010-1.030); Urine Urobilinogen Negative (Negative)
[2020-07-05 12:19] LABS: Urine Bacteria Absent (Absent); Urine Red Blood Cell 3+(>10/hpf) (Absent); Urine Squamous Epithelial Cell Present (Absent); Urine White Blood Cell 1+(6-10/hpf) (Absent)
[2020-07-05 12:34] LABS: Urine Benzodiazepine Screen None Detected (None Detect); Urine Cannabinoids Screen Presumptive Positive (None Detect); Urine Opiates Screen None Detected (None Detect)
[2020-07-05 12:47] LABS: T4, Total 25.95 mcg/dL (6.09-12.23)
[2020-07-05 12:52] LABS: Free T3 12.5 pg/mL (2.5-3.9)
[2020-07-05] MEDS: Metoprolol Tartrate 5 mg VIAL 5 ml VIAL (1 mg/ml) IV SCH ×3 (13:16→23:06)
[2020-07-05 13:51] LABS: Free T4 5.13 ng/dL (0.61-1.12)
[2020-07-05] MEDS: Heparin 5000 UNITS/ML 1 mL VIAL SUBCUT SCH ×2 (14:11→20:47)
[2020-07-06] MEDS: Metoprolol Tartrate 5 mg VIAL 5 ml VIAL (1 mg/ml) IV SCH ×3 (04:57→16:40)
[2020-07-06] MEDS: Heparin 5000 UNITS/ML 1 mL VIAL SUBCUT SCH ×2 (05:13→13:01)
[2020-07-06 06:49] LABS: Albumin 3.1 g/dL (3.2-5.2); CO2 Carbon Dioxide 19 mmol/L (22-32); Calcium 9.3 mg/dL (8.6-10.3); Chloride 111 mmol/L (101-111); Sodium 138 mmol/L (135-145)
[2020-07-06 06:50] LABS: Anion Gap 8 mmol/L (2-11)
[2020-07-06 06:55] LABS: ALT 45 U/L (7-52); Albumin/Globulin Ratio 1.2 (1-3); Alkaline Phosphatase 101 U/L (34-104); BUN/Creatinine Ratio 30.4 (8-20); Blood Urea Nitrogen 14 mg/dL (6-24); EGFR African American 175.4 (>60); Globulin 2.6 g/dL (2-4); Glucose 112 mg/dL (70-100); Total Protein 5.7 g/dL (6.4-8.9)
[2020-07-06 07:25] LABS: ABS Eosinophils 0.1 10^3/ul (0-0.6); ABS Lymphocytes 2.5 10^3/ul (1.0-4.8); ABS Monocytes 0.9 10^3/ul (0-0.8); ABS Neutrophils 3.4 10^3/ul (1.5-7.7); Eosinophil % 1.2 %; Hematocrit 42 % (35-47); Hemoglobin 14.2 g/dL (12.0-16.0); Lymphocyte % 36.6 %; Mean Corpuscular HGB Conc 34 g/dL (31-36); Mean Corpuscular Hemoglobin 29 pg (27-31); Mean Corpuscular Volume 86 fL (80-97); Mean Platelet Volume 9.7 fL (7.4-10.4); Platelet Count 155 10^3/uL (150-450); Red Blood Count 4.86 10^6 /uL (3.70-4.87); Red Cell Distribution Width 13 % (10-15); White Blood Count 6.9 10^3/uL (3.5-10.8)
[2020-07-06 07:41] LABS: Magnesium 1.5 mg/dL (1.9-2.7); Potassium Redraw 3.7 mmol/L (3.5-5.0)
[2020-07-06] MEDS ORDERED: Magnesium Sulf 4 GM/100 ML IV 4,000 MG/100 ML BAG IVPB ONE (09:18)
[2020-07-06] MEDS ORDERED: Potassium Chlor 20 meq TAB.ER PO ONE (09:18)
[2020-07-06] MEDS ORDERED: Enoxaparin 100 MG/ML SYR SUBCUT SCH (18:00)
[2020-07-06] MEDS ORDERED: Enoxaparin 40 MG/0.4 ML SYR SUBCUT SCH ×2 (18:00)
[2020-07-07 06:40] LABS: BUN/Creatinine Ratio 34.1 (8-20); Calcium 9.5 mg/dL (8.6-10.3); EGFR African American 200.3 (>60); EGFR Non-African American 165.6 (>60); Magnesium 1.6 mg/dL (1.9-2.7); Potassium 3.9 mmol/L (3.5-5.0)
[2020-07-07 06:56] LABS: Free T3 7.5 pg/mL (2.5-3.9)
[2020-07-07 06:57] LABS: Free T4 4.35 ng/dL (0.61-1.12)
[2020-07-07] MEDS ORDERED: Magnesium Sulfate 2 gm BAG 2 GM/50 ML BAG IVPB ONE (07:59)
[2020-07-07] MEDS ORDERED: Enoxaparin 100 MG/ML SYR SUBCUT SCH (09:00)
[2020-07-07 12:58] VITALS: BP 122/66
== END 2020-07-07 17:07 | disposition home or self-care (01) | DRG 424 ==
LOC: ED 07:45 → MEDTELE 10:46
PROVIDERS: ADMIT Internal Medicine; ATTEND Internal Medicine